=== PATIENT | male | born 1955 | race Caucasian/White ===

== ENCOUNTER 2022-04-11 16:30 | Inpatient (IN) ==
--- NOTE | 2022-04-11 16:49 | ED Triage Note ---
Date of Service April 11, 2022 History of Present Illness This patient was briefly evaluated while in triage. An abbreviated physical exam was performed. This patient is a 66-year-old Male with past medical history of Vtach who presents to the ED for evaluation of "I felt my defibrillator go off while I was sitting at my desk so I thought I should come in and get checked out." Pt. states he saw Dr. Gomez yesterday. Pt. states he has a Biotronik device. Physical Exam VITALS: Vitals are noted on the nurse's note and reviewed by myself. GENERAL: This is a 66 year old male, in no acute distress, nondiaphoretic, well- developed well-nourished. SKIN: No obvious rashes, edema, erythema HEAD: Normocephalic atraumatic. EYES: Conjunctivae without injection, sclerae without icterus. NECK: No JVD. LUNGS: No retractions or accessory muscle use. MUSCULOSKELETAL: Normal gait. NEURO: Patient was alert and oriented to person place and time. No focal neurological deficits. Initial orders for labs and / or imaging were placed and patient was placed in the waiting area until a bed is available. Please see further documentation for the full ED course.
[2022-04-11] MEDS ORDERED: SODIUM CHLORIDE 0.9% 1000ML 1,000 ML IV STA (16:51)
--- NOTE | 2022-04-11 17:14 | XRay Report ---
XR chest 1V portable HISTORY: 66 years-old Male Dysrhythmia COMPARISON: 09/10/2021 TECHNIQUE: AP view of the chest FINDINGS: Cardiac silhouette is mildly enlarged. Prior median sternotomy with cardiac valvular prosthesis. Left subclavian pacer/AICD. No pneumothorax, pleural effusion, airspace consolidation or overt pulmonary edema. Degenerative changes of the shoulders and spine. IMPRESSION: No acute process. ACT 112: Negative or not required by law. The above report was generated using voice recognition software. It may contain grammatical, syntax o r spelling errors. Electronically signed by: Rylan Rico M.D. 04/11/2022 5:13 PM
[2022-04-11 17:50] LABS: Basophils # (auto) 0.04 K/uL (0-0.2); Basophils % (auto) 0.8 %; Eosinophils # (auto) 0.08 K/uL (0-0.50); Eosinophils % (auto) 1.6 %; Hemoglobin 14.8 g/dl (14.0-18.0); Lymphocytes # (auto) 0.85 K/uL (1.2-3.4); Lymphocytes % (auto) 16.8 %; Mean Corpuscular Hemoglobin 31.8 pg (25.0-34.0); Mean Corpuscular Hgb Conc 34.4 g/dL (32.0-36.0); Mean Corpuscular Volume 92.3 fL (80.0-100.0); Mean Platelet Volume 10.8 fL (9.4-12.4); Monocytes # (auto) 0.35 K/uL (0.24-0.82); Monocytes % (auto) 6.9 %; Neutrophils # (auto) 3.73 K/uL (1.4-6.5); Neutrophils % (auto) 73.9 %; Platelet Count 201 K/uL (130-400); RDW Coefficient of Variation 12.6 % (11.5-14.5); RDW Standard Deviation 42.6 fL (36.4-46.3); Red Blood Count 4.66 M/uL (4.63-6.08); White Blood Count 5.05 K/ul (4.8-10.8)
[2022-04-11 18:58] LABS: Alanine Aminotransferase 18 U/L (7-52); Albumin Globulin Ratio 1.7 (0.9-2); Albumin Level 4.5 gm/dl (3.4-5.0); Alkaline Phosphatase 51 U/L (34-104); BUN Creatinine Ratio 16.9 (10-20); Bilirubin,Total 0.8 mg/dl (0.2-1.0); Blood Urea Nitrogen 15 mg/dl (6-23); Calcium 9.7 mg/dl (8.5-10.1); Carbon Dioxide 29 mmol/L (21-32); Chloride 103 mmol/L (98-107); Creatinine Clr Calc Pharmacy 93.5 ml/min; Est GFR (Non-African American) 89.7 ml/min; Globulin 2.7 gm/dl (2.5-4.0); Glucose 120 mg/dl (70-99(Fasting)); Total Protein 7.2 gm/dl (6.0-8.3); Troponin I High Sensitivity 41.7 pg/ml (0-20)
--- NOTE | 2022-04-11 19:49 | History & Physical Report ---
Date of Service April 11, 2022 Assessment & Plan (1) Defibrillator discharge: Plan: - Patient fell just ICD go off this afternoon at 3:30 PM, was minimally symptomatic prior to with 10-20 seconds of light palpitations. - Does have history of V. tach for which he had ablation 2017 and more recently in September, and is maintained on sotalol 120 mg twice daily. No missed doses. - So far his only lab abnormality is an elevated troponin at 41 which is unsurprising given he was recently defibrillated, however we will trend this overnight. - Potassium and magnesium are pending--could not be run from initial lab draw d/t hemolysis. - K goal 4.0, Mg goal 2.0. - Can defer on repeat echo as he recently had a cardiac MRI in February. - Cardiology consulted in the ED, recommend admitting patient and continue home medications, they will evaluate patient in the morning. (2) CAD (coronary artery disease): Plan: - History of cardiac cath, but no stents. - Remains on daily aspirin 81 mg, lisinopril 40 mg, eplerenone 25 mg daily, and was recommended by his features editor to be on a statin but has declined therapy several times. - Troponin elevated to 41 today after receiving a single shock from his device, do not suspect ACS however will trend overnight. (3) ICD (implantable cardioverter-defibrillator), single, in situ: Plan: - Received a single shock at 3:30 PM today, prior to patient was i symptomatic with light palpitations. - Device is to be interrogated tonight or tomorrow. (4) Ventricular tachycardia: Plan: - Had ablation 2017 and most recently in September 2021, with single-chamber ICD in place and on sotalol 120 mg twice daily. - Management/interrogation as above. - He had a cardiac MRI on 02/07/2022 to investigate whether scar on the mitral annulus may be contributing to V. tach, however there was no evidence of fibrosis in the visualized myocardium or territory on the lateral inferior mitral annulus. Plan - Admit to PCU. - SCDs for VTE ppx. - Full Code. History of Present Illness Chief Complaint: defibrillator discharge at 3:30 this afternoon Primary Care Provider: NO PCP Vic Fisher is a 66-year-old male with a past medical history significant for CAD, MVP s/p repair in 2003, ventricular tachycardia s/p ablation in September with single-chamber Biotronik ICD in place, and von Willebrand's disease who is presenting today after his defibrillator went off at 3:30 this afternoon. He was sitting at his computer and felt he was going into v tach, with some palpitations and and then felt his device try to repace him several times but was not successful and he knew a shock was coming. He presented to the ED for further evaluation after the shock. He has been feeling well throughout his ED stay without any chest pain, palpitations, OSB, dizziness, lightheadedness, or syncopal events. Since his recent ablation in September, as he has gone into V. tach twice in the last 2 weeks prior to today's event, on previous occasions events have been detected and he had been replaced with antitachycardia pacing. He typically feels palpitations and some lightheadedness prior to events. He was just at his features editor's office yesterday and were discussed regarding his 2 recent episodes of V. tach, including increase in sotalol dose versus observation. Patient elected for observation, and has been compliant with his sotalol 120 mg twice daily. Upon presentation throughout stay in ED, he is moderately hypertensive, mildly bradycardic with HR high 50s which appears to be his baseline. His troponin is 41, labs otherwise unremarkable however sodium, potassium, magnesium could not be run due to hemolysis. They are being repeated now. CXR is unremarkable. His EKG shows first-degree AV block which is not new, as well as nonspecific intraventricular conduction block. Allergies Allergy/AdvReac Type Severity Reaction Status Date / Time warfarin Allergy Intermediate RASH, Verified 04/10/22 13:29 DECREASE BODY TEMP. Home Medications Medication Instructions Recorded Confirmed Type amoxicillin 500 mg capsule 500 mg PO .COMPLEX 11/15/20 04/11/22 History aspirin 81 mg tablet,delayed 81 mg PO PM 11/15/20 04/11/22 History release cranberry extract 650 mg capsule 650 mg PO QAM 07/11/21 04/11/22 History (Theracran) sotalol 120 mg tablet 120 mg PO BID #180 tabs 01/26/22 04/11/22 Rx eplerenone 25 mg tablet (Inspra) 25 mg PO QAM #90 tabs 11/10/22 12/06/22 Rx lisinopril 40 mg tablet 40 mg PO HS 04/11/22 04/11/22 History multivitamin 1 tab PO DAILY 04/11/22 04/11/22 History Past Med/Surg History Medical History BPH (benign prostatic hyperplasia) Complex renal cyst Dilated aortic root Dysuria Endocarditis Hypertension LVH (left ventricular hypertrophy) Mild left ventricular systolic dysfunction Mild pulmonary hypertension Mild right ventricular systolic dysfunction Mitral valve prolapse Nephrolithiasis Symptomatic PVCs Ventricular tachycardia Von Willebrand disease Surgical History S/P cardiac catheterization S/P ICD (internal cardiac defibrillator) procedure S/P mitral valve repair Family History Mother Glaucoma Father AF (atrial fibrillation) Heart disease Sister Fibromyalgia Brother Heart disease Social History Smoking Status: Never smoker Hx Alcohol Use: No Hx Substance Use: No Preferred Language: Turkmen Communication Ability: Effective Fan Blade Aligner Required: No Beliefs That Will Affect Care: None marital status: Single Current Living Situation: Alone 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 How many Children do You have: 0 Other Information That Helps Us Care for You: No Feels Safe at Home: Yes Safety Concerns: Feels Safe At This Time Assistive Devices: None Review of Systems Review of Systems: Constitutional: No fever/chills, weakness, fatigue, myalgias, anorexia, night sweats Eyes: No diplopia, no worsening or blurred vision ENT: normal hearing, no trouble swallowing Respiratory: No cough, sputum, dyspnea at rest or on exertion Cardiovascular: palpitations this afternoon now resolved; No chest pain, tightness Abdomen: No pain, nausea, vomiting, diarrhea or constipation : Denies dysuria, hematuria, increased urgency/frequency, urinary retention Musculoskeletal: No joint pain, calf pain, swelling Neurologic: No weakness, numbness/tingling, or balance problems Psychiatric: No anxiety or depression Skin: No rash or itch Physical Exam Physical Exam: General: awake, alert, no apparent distress Head: Normocephalic, atraumatic ENT: PERRL, EOMI, no pharyngeal exudate, mucous membranes moist Chest: Clear to auscultation, on room air, no adventitious breath sounds Cardiac: Regular rate and rhythm, no murmur, no JVD, normal peripheral pulses, good capillary refill Abdominal: NABS x 4 quadrants, soft, nontender to palpation, no rebound, guarding or tenderness Extremities: Normal inspection, no peripheral edema or erythema, calfs nontender to palpation Psych: Normal mood and affect Neuro: AAO x 3, strength intact bilaterally and rated 5/5, no motor deficits, speech is clear, no peripheral sensory deficits Skin: no rash or erythema Results & Data Results & Data ([facility]) Vital Signs (Past 12 Hours) Vital Signs Temp Pulse Pulse Resp BP BP Pulse Ox 04/11/22 19:00 62 18 162/90 H 98 04/11/22 17:54 59 L 20 160/86 H 97 04/11/22 17:54 97 04/11/22 16:47 37.1 C 60 18 173/94 H 99 O2 Del Method 04/11/22 19:00 Room Air 04/11/22 17:54 Room Air 04/11/22 17:54 Room Air 04/11/22 16:47 Room Air Laboratory Results Abnormal lab results 04/11/22 04/11/22 Range/Units 17:35 17:35 Lymph # (Auto) 0.85 L (1.2-3.4) K/uL Glucose 120 H (70-99(Fasting)) mg/dl Troponin I High Sens 41.7 H (0-20) pg/ml Diagnostic Findings Chest X-Ray 04/11/22 16:51 XR chest 1V portable HISTORY: 66 years-old Male Dysrhythmia COMPARISON: 09/10/2021 TECHNIQUE: AP view of the chest FINDINGS: Cardiac silhouette is mildly enlarged. Prior median sternotomy with cardiac valvular prosthesis. Left subclavian pacer/AICD. No pneumothorax, pleural effusion, airspace consolidation or overt pulmonary edema. Degenerative changes of the shoulders and spine. IMPRESSION: No acute process. ACT 112: Negative or not required by law. The above report was generated using voice recognition software. It may contain grammatical, syntax or spelling errors. Electronically signed by: Rylan Rico M.D. 04/11/2022 5:13 PM ECG Additional Comments: Sinus bradycardia with 1st degree A-V block Non-specific intra-ventricular conduction block Abnormal ECG When compared with ECG of 10-SEP-2021 03:23, Premature ventricular complexes are no longer Present Questionable change in QRS axis. Code Status & VTE Plan Code Status Full Code. Supervising Physician Co-Signing Physician Notes Attending addendum: I have physically seen this patient, have supervised the YAA's activities, and agree with the H&P unless as otherwise noted. Assessment and Plan: Ventricular tachycardia/status post defibrillator discharge/CAD- Discharge at 330 this afternoon, preceded by a few episodes of palpitations Status post ablation 2017 Has not missed any of his routine medications of sotalol Laboratories pending, verify potassium greater than regular 4 and magnesium greater than or equal to 2 status post cardiac MRI in February, no need for echocardiogram Continue aspirin, lisinopril, eplerenone and sotalol as noted Troponin mildly elevated at 41 today likely secondary to device shock Cardiology aware and will interrogate pacer in a.m. Remaining orders and notations as noted PG Care Time/CCT Total # of Minutes Spent Total Time Spent with Patient: Total time spent is greater than 50% in coordination of care (as documented) at patient's floor/unit and/or counseling patient: Coding Level of Care Code 57561 Initial Inpt Care Lvl 3 Diagnoses Defibrillator discharge Z45.02 CAD (coronary artery disease) I25.10 Associated angina: without angina Coronary Disease-Associated Artery/Lesion type: [place] artery [place] vs. transplanted heart: king salmon heart ICD (implantable cardioverter-defibrillator), single, in situ Z95.810 Ventricular tachycardia I47.2 (1) CAD (coronary artery disease) Associated angina: without angina Coronary Disease-Associated Artery/Lesion type: [place] artery [place] vs. transplanted heart: king salmon heart Qualified Co de(s): I25.10 - Atherosclerotic heart disease of [place] coronary artery without angina pectoris
[2022-04-11 19:57] LABS: Partial Thromboplastin Time 28.5 Seconds (21.0-31.0); Prothrombin Time 10.9 Seconds (9.0-12.0)
[2022-04-11 20:31] LABS: Magnesium 1.9 mg/dl (1.7-2.4); Potassium 3.8 mmol/L (3.5-5.1)
[2022-04-11] MEDS ORDERED: ALUMINUM/MAGNESIUM SUSP 30 ML UDC PO PRN (21:25)
[2022-04-11] MEDS ORDERED: MAGNESIUM SULFATE / D5W 1 GM/100 ML BAG IV ONE (21:41)
[2022-04-11] MEDS ORDERED: POTASSIUM CHLORIDE CRTAB 20 MEQ TABCR PO STA (21:41)
[2022-04-11] MEDS: SOTALOL HCL 80 MG TAB PO SCH (21:47)
[2022-04-11] MEDS: lisinopril 40 MG TAB PO SCH (21:48)
[2022-04-11] MEDS: ASPIRIN 81 MG ECTAB PO SCH (21:48)
--- NOTE | 2022-04-12 | Emergency Department Note ---
Impression & Plan ICD (implantable cardioverter-defibrillator), single, in situ, Defibrillator discharge, Elevated troponin ED Provider Note NAME: NICOLE FREDERICK AGE: 66 SEX: M : 1955 ARRIVES VIA: Walk-In INFORMANT: Patient, ED PROVIDER(S): Arnold Sandoval MD Chief Complaint: "I was shocked by my defibrillator." HPI: Patient presents due to concern for receiving a defibrillator shock. The patient states that this occurred around 3:30 PM. The patient denies any chest pains or shortness of breath no nausea vomiting or upper respiratory symptoms. Patient states that he has been compliant with his medications and does follow with Dr. James locally as well as Dr. Blanton at [facility]. Patient does have a known history of V. tach. Patient states that he has had prior shocks in the past and this does feel similar. Patient denies any falls or trauma. Patient denies any nausea or vomiting and no diarrhea. Patient denies any exacerbating or remitting factors. The patient states he has a Biotronik AICD that was placed in 2017. Patient states that he has had it interrogated in the past without any issues. ROS: See HPI for pertinent positives and negatives. A total of 10 systems were reviewed and otherwise negative. Past medical history: See below Surgical history: See below Social history: See below Physical Exam: GENERAL: NAD, wearing a mask, non-toxic. EYE EXAM: Normal conjunctiva. PERRL, no anisocoria and EOM's grossly intact w/o pain. NECK: Supple, no nuchal rigidity, no adenopathy, non-tender. No signs of meningismus. FROM of the neck with good chin to chest and neck extension. No s tridor. LUNGS: Clear to auscultation. Normal chest wall mechanics. HEART: NSR, no MRG. ABDOMEN: Abdomen soft, non-tender, normo-active bowel sounds, no masses, no rebound or guarding. BACK: No CVA TTP. SKIN: No rashes and no bruising. UPPER EXTREMITIES: Upper extremities are grossly normal. LOWER EXTREMITIES: Grossly normal, no edema. NEURO EXAM: A&O x3, cranial nerves II-XII grossly intact, normal speech, moves all 4 extremities. Differential diagnoses: V tach, electrolyte abnormality, cardiac ischemia, aortic dissection, pulmonary embolism, pneumothorax, pneumonia, pericarditis, myocarditis, esophageal rupture, GERD, cholecystitis, pancreatitis, musculoskeletal, as well as other pathologies. Course: Patient was seen and evaluated the bedside. Full history physical exam was performed. EKG interpreted by me Sinus bradycardia with first-degree AV block, rate of 58, prolonged NC, wide QRS, normal axis. No ST elevations. Imaging Studies: See Below Cardiac monitoring: An order was placed for continuous cardiac monitoring. The monitor shows a rate of 65 with sinus rhythm. MDM: Patient presents due to concern for receiving a defibrillator shock. The patient did have blood work completed. I did request that the patient's AICD be interrogated but we do not have the equipment to do so after discussing with nursing and charge nurse. The patient blood work was completed which showed a normal white count H&H and platelet count. Kidney function is unremarkable electrolytes. Patient's initial troponin was 41. Patient has no chest pains or shortness of breath. I did speak with Dr. Restrepo with on-call cardiology who stated that the patient may continue his scheduled medications provided the QTC is not prolonged. I did convey this to the on-call hospitalist and did speak with Dr. Sorenson and the patient was admitted to the medicine service. Past Med/Surg History Medical History BPH (benign prostatic hyperplasia) Complex renal cyst Dilated aortic root Dysuria Endocarditis Hypertension LVH (left ventricular hypertrophy) Mild left ventricular systolic dysfunction Mild pulmonary hypertension Mild right ventricular systolic dysfunction Mitral valve prolapse Nephrolithiasis Symptomatic PVCs Ventricular tachycardia Von Willebrand disease Surgical History S/P cardiac catheterization S/P ICD (internal cardiac defibrillator) procedure S/P mitral valve repair Family History Mother Glaucoma Father AF (atrial fibrillation) Heart disease Sister Fibromyalgia Brother Heart disease Social History Smoking Status: Never smoker Hx Alcohol Use: No Hx Substance Use: No Preferred Language: Somali Communication Ability: Effective Supervisor Of Communications Required: No Beliefs That Will Affect Care: None marital status: Single Current Living Situation: Alone 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 Home Meds Home Medications Medication Instructions Recorded Confirmed amoxicillin 500 mg capsule 500 mg PO .COMPLEX 11/15/20 04/11/22 aspirin 81 mg tablet,delayed 81 mg PO PM 11/15/20 04/11/22 release cranberry extract 650 mg capsule 650 mg PO QAM 07/11/21 04/11/22 (Theracran) lisinopril 40 mg tablet 40 mg PO HS 04/11/22 04/11/22 multivitamin 1 tab PO DAILY 04/11/22 04/11/22 Previous Rx's Medication Instructions Recorded sotalol 120 mg tablet 120 mg PO BID #180 tabs 01/26/22 eplerenone 25 mg tablet (Inspra) 25 mg PO QAM #90 tabs 03/16/22 Results & Data (ED) Vital Signs Vital Signs - 24 hr 04/11/22 16:47 04/11/22 17:54 04/11/22 17:54 Temperature 37.1 C Temperature Source Temporal Artery Scan Pulse Rate 60 Pulse Rate [Apical] 59 L Pulse Rhythm Regular Pulse Strength Normal Respiratory Rate 18 20 Respiratory Effort / Characteristics Non-Labored Spontaneous Non-Labored Respiratory Depth Normal Normal Respiratory Pattern Regular Blood Pressure 173/94 H Blood Pressure [Right Arm] 160/86 H Blood Pressure Mean 120 Blood Pressure Mean [Right Arm] 110 Blood Pressure Position Sitting Pulse Oximetry 99 97 97 Oxygen Delivery Method Room Air Room Air Room Air Sepsis Recent Fever Within 48 Hours No Sepsis New/Unexplained Change in Mental Status No Sepsis Action Taken by Nursing No Action Required 04/11/22 19:00 Temperature Temperature Source Pulse Rate Pulse Rate [Apical] 62 Pulse Rhythm Pulse Strength Respiratory Rate 18 Respiratory Effort / Characteristics Non-Labored Respiratory Depth Normal Respiratory Pattern Blood Pressure Blood Pressure [Right Arm] 162/90 H Blood Pressure Mean Blood Pressure Mean [Right Arm] 114 Blood Pressure Position Pulse Oximetry 98 Oxygen Delivery Method Room Air Sepsis Recent Fever Within 48 Hours Sepsis New/Unexplained Change in Mental Status Sepsis Action Taken by Snf Medications Current Medication List: was personally reviewed by me Laboratory Data Attestation: I reviewed the patient's lab results. Result diagrams: 04/11/22 17:35 04/11/22 19:31 Lab Results 04/11/22 04/11/22 04/11/22 Range/Units 17:35 17:35 17:35 WBC 5.05 (4.8-10.8) K/ul RBC 4.66 (4.63-6.08) M/uL Hgb 14.8 (14.0-18.0) g/dl Hct 43.0 (40.1-51.0) % MCV 92.3 (80.0-100.0) fL MCH 31.8 (25.0-34.0) pg MCHC 34.4 (32.0-36.0) g/dL RDW Std Deviation 42.6 (36.4-46.3) fL RDW Coeff of Anuel 12.6 (11.5-14.5) % Plt Count 201 (130-400) K/uL MPV 10.8 (9.4-12.4) fL Immature Gran % (Auto) 0.0 % Neut % (Auto) 73.9 % Lymph % (Auto) 16.8 % [place] % (Auto) 6.9 % Eos % (Auto) 1.6 % Baso % (Auto) 0.8 % Neut # (Auto) 3.73 (1.4-6.5) K/uL Lymph # (Auto) 0.85 L (1.2-3.4) K/uL [place] # (Auto) 0.35 (0.24-0.82) K/uL Eos # (Auto) 0.08 (0-0.50) K/uL Baso # (Auto) 0.04 (0-0.2) K/uL Immature Gran # (Auto) 0.00 (0.00-0.02) K/uL PT Cancelled INR Cancelled APTT Cancelled PTT Ratio Cancelled Sodium TNP Potassium TNP Chloride 103 (98-107) mmol/L Carbon Dioxide 29 (21-32) mmol/L Anion Gap TNP BUN 15 (6-23) mg/dl Creatinine 0.89 (0.6-1.4) mg/dl Est Cr Clr Drug Dosing 93.5 ml/min Est GFR ( Amer) 104.0 ml/min Est GFR (Non-Af Amer) 89.7 ml/min BUN/Creatinine Ratio 16.9 (10-20) Glucose 120 H (70-99(Fasting)) mg/dl Calcium 9.7 (8.5-10.1) mg/dl Magnesium TNP Total Bilirubin 0.8 (0.2-1.0) mg/dl AST TNP ALT 18 (7-52) U/L Alkaline Phosphatase 51 (34-104) U/L Troponin I High Sens 41.7 H (0-20) pg/ml Total Protein 7.2 (6.0-8.3) gm/dl Albumin 4.5 (3.4-5.0) gm/dl Globulin 2.7 (2.5-4.0) gm/dl Albumin/Globulin Ratio 1.7 (0.9-2) TSH (0.300-4.500) uIu/ml SARS-CoV-2, RNA, NAAT (NEGATIVE) 04/11/22 04/11/22 04/11/22 Range/Units 17:35 18:27 18:43 WBC (4.8-10.8) K/ul RBC (4.63-6.08) M/uL Hgb (14.0-18.0) g/dl Hct (40.1-51.0) % MCV (80.0-100.0) fL MCH (25.0-34.0) pg MCHC (32.0-36.0) g/dL RDW Std Deviation (36.4-46.3) fL RDW Coeff of [place]uel (11.5-14.5) % Plt Count (130-400) K/uL MPV (9.4-12.4) fL Immature Gran % (Auto) % Neut % (Auto) % Lymph % (Auto) % [place] % (Auto) % Eos % (Auto) % Baso % (Auto) % Neut # (Auto) (1.4-6.5) K/uL Lymph # (Auto) (1.2-3.4) K/uL [place] # (Auto) (0.24-0.82) K/uL Eos # (Auto) (0-0.50) K/uL Baso # (Auto) (0-0.2) K/uL Immature Gran # (Auto) (0.00-0.02) K/uL PT Cancelled INR Cancelled APTT Cancelled PTT Ratio Cancelled Sodium Potassium Chloride (98-107) mmol/L Carbon Dioxide (21-32) mmol/L Anion Gap BUN (6-23) mg/dl Creatinine (0.6-1.4) mg/dl Est Cr Clr Drug Dosing ml/min Est GFR ( Amer) ml/min Est GFR (Non-Af Amer) ml/min BUN/Creatinine Ratio (10-20) Glucose (70-99(Fasting)) mg/dl Calcium (8.5-10.1) mg/dl Magnesium Total Bilirubin (0.2-1.0) mg/dl AST ALT (7-52) U/L Alkaline Phosphatase (34-104) U/L Troponin I High Sens (0-20) pg/ml Total Protein (6.0-8.3) gm/dl Albumin (3.4-5.0) gm/dl Globulin (2.5-4.0) gm/dl Albumin/Globulin Ratio (0.9-2) TSH 1.786 (0.300-4.500) uIu/ml SARS-CoV-2, RNA, NAAT NEGATIVE (NEGATIVE) 04/11/22 04/11/22 Range/Units 19:31 19:31 WBC (4.8-10.8) K/ul RBC (4.63-6.08) M/uL Hgb (14.0-18.0) g/dl Hct (40.1-51.0) % MCV (80.0-100.0) fL MCH (25.0-34.0) pg MCHC (32.0-36.0) g/dL RDW Std Deviation (36.4-46.3) fL RDW Coeff of [place]uel (11.5-14.5) % Plt Count (130-400) K/uL MPV (9.4-12.4) fL Immature Gran % (Auto) % Neut % (Auto) % Lymph % (Auto) % [place] % (Auto) % Eos % (Auto) % Baso % (Auto) % Neut # (Auto) (1.4-6.5) K/uL Lymph # (Auto) (1.2-3.4) K/uL [place] # (Auto) (0.24-0.82) K/uL Eos # (Auto) (0-0.50) K/uL Baso # (Auto) (0-0.2) K/uL Immature Gran # (Auto) (0.00-0.02) K/uL PT 10.9 INR 1.0 APTT 28.5 PTT Ratio 1.0 Sodium 140 Potassium 3.8 Chloride (98-107) mmol/L Carbon Dioxide (21-32) mmol/L Anion Gap BUN (6-23) mg/dl Creatinine (0.6-1.4) mg/dl Est Cr Clr Drug Dosing ml/min Est GFR ( Amer) ml/min Est GFR (Non-Af Amer) ml/min BUN/Creatinine Ratio (10-20) Glucose (70-99(Fasting)) mg/dl Calcium (8.5-10.1) mg/dl Magnesium 1.9 Total Bilirubin (0.2-1.0) mg/dl AST 18 ALT (7-52) U/L Alkaline Phosphatase (34-104) U/L Troponin I High Sens (0-20) pg/ml Total Protein (6.0-8.3) gm/dl Albumin (3.4-5.0) gm/dl Globulin (2.5-4.0) gm/dl Albumin/Globulin Ratio (0.9-2) TSH (0.300-4.500) uIu/ml SARS-CoV-2, RNA, NAAT (NEGATIVE) Administered Medications Aspirin (Aspirin 81 Mg Ectab) 81 mg PO PM DHAVAL Stop: 05/11/22 21:24 Last Admin: 04/11/22 21:48 Dose: 81 mg Documented By: JOSE A Lisinopril (Lisinopril 40 Mg Tab) 40 mg PO HS DHAVAL Stop: 05/11/22 21:24 Last Admin: 04/11/22 21:48 Dose: 40 mg Documented By: JOSE A Miscellaneous (Order Awaiting Action) 1 each N/A QS DHAVAL Stop: 05/12/22 00:00 Last Admin: 04/11/22 23:30 Dose: Not Given Documented By: JOSE A Sotalol HCl (Sotalol Hcl 80 Mg Tab) 120 mg PO BID DHAVAL Stop: 05/11/22 21:24 Last Admin: 04/11/22 21:47 Dose: 120 mg Documented By: JOSE A Discontinued Medications Sodium Chloride (Nss 1000ml) 1,000 mls @ 999 mls/hr IV .Q1H1M STA Stop: 04/11/22 17:51 Last Infusion: 04/11/22 19:13 Dose: 0 mls/hr Documented By: Admin: 04/11/22 17:42 Dose: 999 mls/hr Documented By: HIREN Magnesium Sulfate/Dextrose (Magnesium Sulfate / D5w) 1 gm in 100 mls @ 50 mls/hr IV ONE ONE Stop: 04/11/22 23:40 Last Admin: 04/11/22 21:53 Dose: 50 mls/hr Documented By: JOSE A Potassium Chloride (Potassium Chloride Crtab 20 Meq Tabcr) 40 meq PO NOW STA Stop: 04/11/22 21:42 Last Admin: 04/11/22 21:53 Dose: 40 meq Documented By: JOSE A Imaging Data Radiologist's Impression: Chest X-Ray 04/11/22 16:51 XR chest 1V portable HISTORY: 66 years-old Male Dysrhythmia COMPARISON: 09/10/2021 TECHNIQUE: AP view of the chest FINDINGS: Cardiac silhouette is mildly enlarged. Prior median sternotomy with cardiac valvular prosthesis. Left subclavian pacer/AICD. No pneumothorax, pleural effusion, airspace consolidation or overt pulmonary edema. Degenerative changes of the shoulders and spine. IMPRESSION: No acute process. ACT 112: Negative or not required by law. The above report was generated using voice recognition software. It may contain grammatical, syntax or spelling errors. Electronically signed by: Rylan Rico M.D. 04/11/2022 5:13 PM Discharge Plan Visit Data Chief Complaint: Tachycardia Stated Complaint: DEFIBIULATER, GOT A SHOCK, ED Provider: Arnold Sandoval Discharge Problem: ICD (implantable cardioverter-defibrillator), single, in situ, Defibrillator discharge, Elevated troponin Patient Disposition: Admitted As Inpatient Discharge Instructions Interventions: ED Discharge Assessment Last Done: 04/11/22 21:09
[2022-04-12 05:07] LABS: BUN Creatinine Ratio 14.3 (10-20); Calcium 8.7 mg/dl (8.5-10.1); Creatinine Clr Calc Pharmacy 99.1 ml/min; Est GFR (African American) 106.5 ml/min; Est GFR (Non-African American) 91.9 ml/min; Potassium 3.8 mmol/L (3.5-5.1)
[2022-04-12] MEDS: SOTALOL HCL 80 MG TAB PO SCH ×3 (08:28→21:38)
[2022-04-12] MEDS: lisinopril 40 MG TAB PO SCH ×2 (08:28→21:14)
[2022-04-12] MEDS: MULTIVITAMIN TAB PO SCH (08:28)
[2022-04-12] MEDS: ACETAMINOPHEN 325 MG TAB PO PRN ×3 (08:30→21:37)
[2022-04-12] MEDS ORDERED: CRANBERRY EXTRACT 650 MG PO SCH (09:00)
--- NOTE | 2022-04-12 11:43 | Cardiology Consultation ---
Date of Consultation April 12, 2022 Assessment & Plan (1) ICD (implantable cardioverter-defibrillator), single, in situ: (2) Ventricular tachycardia: (3) CAD (coronary artery disease): (4) Mitral regurgitation: Plan 1. Single-chamber ICD: I did not interrogate his ICD, I will do that before he goes home. 2. Ventricular tachycardia: He Had documented ventricular tachycardia several times in March and clinically he had recurrence prompting his admission. With device interrogation I will see if there is any role for reprogramming to allow more antitachycardia pacing. He was aware of the arrhythmia but did not have presyncope or syncope so we may be able to make some adjustments. 3. Coronary artery disease: Based on his prior catheterization reports he does have coronary artery disease. Although his lipid profile is not bad, it is not ideal and guidelines would indicate that he should be on a statin. 4. Mitral regurgitation: He does have a mitral regurgitation murmur however he has only minimal mitral regurgitation on his prior echocardiogram. History of Present Illness Reason for Consultation: ICD shock Attending Physician: Urban Wilcox MD History of Present Illness This is a 66-year-old gentleman who is a history of hypertension, von Willebrand's disease, mitral valve prolapse for which he had a valve repair in 2003 and was left with only minor mitral insufficiency. He had a mild nonischemic cardiomyopathy with ejection fraction of 40 to 45% range but had a cardiac arrest in 2016 following which he had a Biotronik ICD implanted in [place]. Catheterization then showed no obstructive coronary artery disease although he has been told he had up to a 30% narrowing but was also told that that was "nothing" and he has not been on a statin although he does take aspirin. I do not have that report to review. He also had recurrent ventricular tachycardia in May 2018 as well as endocarditis in June 2018, this was while he was in [place]. He had electrophysiology study and ablation in [place] in August of 2018, evidently successfully for several years. He did bring in his [place] records and he did have a cardiac catheterization there on June 26, 2018 where he was described to have up to 20% sequential LAD stenoses so he has had documented coronary artery disease. He has also had difficulty with atrial tachycardia for which he is was on sotalol, although that historically has controlled his atrial symptoms quite well. He did have a slight decrease in his exercise ability in 2020 and he did not feel as comfortable doing things as he did in the past although he was not really limited.I did obtain an echocardiogram on December 01, 2020 which showed a low normal left ventricular ejection fraction at 50 to 55%, mild left ventricular hypertrophy and no significant mitral regurgitation. In [place] on June 24, 2018 his ejection fraction was reported as 60%. I do not know that this represents loss in function however. I did have a lipid profile done on December 15, 2020 this showed his total cholesterol to be 168, LDL 104 and HDL 47. These are slightly high but not bad but he does have known coronary artery disease. His liver function tests were unremarkable. He then developed recurrent ventricular tachycardia, having episodes on July 06July 09 and August 12, 2021. The device treated these appropriately with antitachycardia pacing. We discussed options but did not arrange anything, kothari milady he had further episodes of ventricular tachycardia on September 02, 2021 and was admitted to [facility] for an increase in his sotalol. Ultimately however he had VT ablation attempted at [facility] on September 21, 2021. It appears however that the origin of the VT was likely epicardial and could not be identified with the endocardial approach. He has therefore been maintained on sotalol 120 mg twice daily. During his last clinic visit at [facility] in December 2021 a cardiac MRI was arranged to further evaluate the scar around the mitral annulus that may be contributing to his ventricular tachycardia. The study was performed on 02/07/22 and was technically limited. There was no evidence of fibrosis in the visualized myocardium, including the territory around the lateral and inferior mitral annulus. He was observed to have episodes of ventricular tachycardia on April 03, 2022 and April 04, 2022 (these were symptomatic and were terminated by antitachycardia pacing). He was seen in the office April 10, 2022 and consideration was given to increasing his sotalol but due to resting bradycardia this was not done. Allergies Allergy/AdvReac Type Severity Reaction Status Date / Time warfarin Allergy Intermediate RASH, Verified 04/10/22 13:29 DECREASE BODY TEMP. Home Medications Medication Instructions Recorded Confirmed Type amoxicillin 500 mg capsule 500 mg PO .COMPLEX 11/15/20 04/11/22 History aspirin 81 mg tablet,delayed 81 mg PO PM 11/15/20 04/11/22 History release cranberry extract 650 mg capsule 650 mg PO QAM 07/11/21 04/11/22 History (Theracran) sotalol 120 mg tablet 120 mg PO BID #180 tabs 01/26/22 04/11/22 Rx eplerenone 25 mg tablet (Inspra) 25 mg PO QAM #90 tabs 03/16/22 04/11/22 Rx lisinopril 40 mg tablet 40 mg PO HS 04/11/22 04/11/22 History multivitamin 1 tab PO DAILY 04/11/22 04/11/22 History Device Information Device Type: ICD Device Location: Left Pre-Pectoral Device/ICD [employer], Model, Serial #: [id number], Model, Serial# Implantation Date: December 20, 2016 Device MRI Compatable: Yes Magnet Response: Inhibits therapy Underlying Rhythm: Sinus Bradycardia Device Dependent: No Mode: VVI Lower Rate: 40 TERRI/Longevity: % battery life remaining Patient History Medical History BPH (benign prostatic hyperplasia) Complex renal cyst Dilated aortic root Dysuria Endocarditis Hypertension LVH (left ventricular hypertrophy) Mild left ventricular systolic dysfunction Mild pulmonary hypertension Mild right ventricular systolic dysfunction Mitral valve prolapse Nephrolithiasis Symptomatic PVCs Ventricular tachycardia Von Willebrand disease Surgical History S/P cardiac catheterization S/P ICD (internal cardiac defibrillator) procedure S/P mitral valve repair Family History Mother Glaucoma Father AF (atrial fibrillation) Heart disease Sister Fibromyalgia Brother Heart disease Social History Smoking Status: Never smoker Hx Alcohol Use: No Hx Substance Use: No Preferred Language: German Communication Ability: Effective Pro Shop Attendant Required: No Beliefs That Will Affect Care: None marital status: Single Current Living Situation: Alone 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 How many Children do You have: 0 Other Information That Helps Us Care for You: No Feels Safe at Home: Yes Safety Concerns: Feels Safe At This Time Assistive Devices: None Review of Systems Review of Systems: All systems reviewed & are unremarkable except as noted in HPI & below Results & Data ([facility]) Vital Signs (Past 12 Hours) Vital Signs Temp Pulse Pulse Resp BP BP Pulse Ox 04/12/22 11:33 36.7 C 51 L 17 123/72 96 04/12/22 08:00 58 L 04/12/22 08:04 36.5 C 54 L 17 132/79 96 04/12/22 03:39 36.6 C 57 L 18 119/71 95 04/11/22 23:51 36.4 C L 56 L 18 149/81 H 95 O2 Del Method 04/12/22 11:33 Room Air 04/12/22 08:00 04/12/22 08:04 Room Air 04/12/22 03:39 Room Air 04/11/22 23:51 Room Air Laboratory Results Cardiac Enzymes 04/11/22 04/11/22 04/11/22 Range/Units 17:35 19:31 22:24 AST TNP 18 Troponin I High Sens 41.7 H 69.5 H* D (0-20) pg/ml 04/12/22 04/12/22 Range/Units 04:25 10:18 AST Troponin I High Sens 42.4 H D 24.7 H D (0-20) pg/ml Coagulation 04/11/22 04/11/22 04/11/22 Range/Units 17:35 18:27 19:31 PT Cancelled Cancelled 10.9 APTT Cancelled Cancelled 28.5 CBC 04/11/22 Range/Units 17:35 WBC 5.05 (4.8-10.8) K/ul RBC 4.66 (4.63-6.08) M/uL Hgb 14.8 (14.0-18.0) g/dl Hct 43.0 (40.1-51.0) % Plt Count 201 (130-400) K/uL Neut # (Auto) 3.73 (1.4-6.5) K/uL Lymph # (Auto) 0.85 L (1.2-3.4) K/uL [place] # (Auto) 0.35 (0.24-0.82) K/uL Eos # (Auto) 0.08 (0-0.50) K/uL Baso # (Auto) 0.04 (0-0.2) K/uL Comprehensive Metabolic Panel 04/11/22 04/11/22 04/12/22 Range/Units 17:35 19:31 04:25 Sodium TNP 140 139 Potassium TNP 3.8 3.8 Chloride 103 107 (98-107) mmol/L Carbon Dioxide 29 28 (21-32) mmol/L BUN 15 12 (6-23) mg/dl Creatinine 0.89 0.84 (0.6-1.4) mg/dl Glucose 120 H 88 (70-99(Fasting)) mg/dl Calcium 9.7 8.7 (8.5-10.1) mg/dl AST TNP 18 ALT 18 (7-52) U/L Alkaline Phosphatase 51 (34-104) U/L Total Protein 7.2 (6.0-8.3) gm/dl Albumin 4.5 (3.4-5.0) gm/dl Intake and Output 04/11/22 04/12/22 04/12/22 22:59 06:59 14:59 Intake Total 1300 / 1600 300 / 1600 Balance 1300 / 1600 300 / 1600 Intake: IV 1000 / 1100 100 / 1100 Magnesium Sulfate / D5w 1 gm In 100 / 100 100 ml @ 50 mls/hr IV ONE ONE Rx#:[id number] Sodium Chloride 0.9% 1000ML 1, 1000 / 1000 000 ml @ 999 mls/hr IV .Q1H1M STA Rx#:[id number] Oral 300 / 500 200 / 500 Other: # Unmeasured Voids 2 Weight 82.7 kg 81.6 kg Weight Measurement Method Standing Scale Built in [facility] Diagnostic Findings An electrocardiogram done on presentation shows sinus bradycardia at 58 bpm with a nonspecific IVCD. PG Care Time/CCT Total # of Minutes Spent Total Time Spent with Patient: Total time spent is greater than 50% in coordination of care (as documented) at patient's floor/unit and/or counseling patient: Coding Level of Care Code 73608 Initial Inpt Care Lvl 3 Diagnoses ICD (implantable cardioverter-defibrillator), single, in situ Z95.810 Ventricular tachycardia I47.2 CAD (coronary artery disease) I25.10 Coronary Disease-Associated Artery/Lesion type: [place] artery [place] vs. transplanted heart: [place] heart Associated angina: without angina Mitral regurgitation I34.0 Cardiac valve disease etiology: etiology unspecified (1) CAD (coronary artery disease) Coronary Disease-Associated Artery/Lesion type: [place] artery [place] vs. transplanted heart: [place] heart Associated angina: without angina Qualified Code(s): I25.10 - Atherosclerotic heart disease of [place] coronary artery without angina pectoris (2) Mitral regurgitation Cardiac valve disease etiology: etiology unspecified Qualified Code(s): I34.0 - Nonrheumatic mitral (valve) insufficiency
[2022-04-12] MEDS ORDERED: SOTALOL HCL 80 MG TAB PO ONE (14:00)
--- NOTE | 2022-04-12 14:05 | Electrocardiogram Report ---
Test Reason : Blood Pressure : / mmHG Vent. Rate : 058 BPM Atrial Rate : 058 BPM P-R Int : 210 ms QRS Dur : 136 ms QT Int : 436 ms P-R-T Axes : 056 070 076 degrees QTc Int : 428 ms Sinus bradycardia with 1st degree A-V block Non-specific intra-ventricular conduction block Abnormal ECG When compared with ECG of 10-SEP-2021 03:23, Premature ventricular complexes are no longer Present Questionable change in QRS axis Confirmed by Mahin Byrd ([id number]) on 04/12/2022 2:05:04 PM Referred By: REFERRED SELF Confirmed By:Mahin Byrd
--- NOTE | 2022-04-12 17:45 | Hospitalist Progress Note ---
Date of Service April 12, 2022 Assessment & Plan (1) Defibrillator discharge: Plan: - Patient fell just ICD go off this afternoon at 3:30 PM, was minimally symptomatic prior to with 10-20 seconds of light palpitations. - This patient has a history of mitral valve prolapse with repair in 2003 with only minor insufficiency and a nonischemic cardiomyopathy with a EF of 40 to 45%. Patient had a cardiac arrest in 2016 at that time he had a Biotronik ICD implanted in [place]. 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 Reportedly he had electrophysiology study and ablation in [place] in August 2018 patient had difficulty with atrial tachycardia and was instituted on sotalol therapy which traditionally controlled his symptoms. Over the years his ejection fraction improved and most recent ejection fraction being normal. Patient developed recurrent ventricular tachycardia in July having episodes on the second fifth and eighth his device appropriately treated these by interrogation. Recurrent tachycardia again in August where he went to [facility] and they increased his sotalol therapy he had been ventricular tachycardia ablation attempted at [place] on September 21 but the origin of the ventricular tachycardia was epicardial and cannot be identified with the endocardial approach he therefore was maintained on sotalol therapy and it was felt that the prolapse to scar around his mitral annulus was origin of his ventricular tachycardia After evaluation today Dr. James is increase his sotalol to 160 mg twice a day evaluation of his QT and intervals in the morning (2) CAD (coronary artery disease): Plan: - History of cardiac cath, but no stents. - Remains on daily aspirin 81 mg, lisinopril 40 mg, eplerenone 25 mg daily, and was recommended by his brand leader to be on a statin but has declined therapy several times. - Troponin elevated second to AC discharge not related to ACS (3) ICD (implantable cardioverter-defibrillator), single, in situ: Plan: - Received a single shock at 3:30 PM today, prior to patient was i symptomatic with light palpitations. - Device is to be interrogated tonight or tomorrow. (4) Ventricular tachycardia: Plan: - Had ablation 2017 and most recently in September 2021, with single-chamber ICD in place and on sotalol 120 mg twice daily. - Management/interrogation as above. - He had a cardiac MRI on 02/07/2022 to investigate whether scar on the mitral annulus may be contributing to V. tach, however there was no evidence of fibrosis in the visualized myocardium or territory on the lateral inferior mitral annulus. Plan - Admit to PCU. - SCDs for VTE ppx. - Full Code. Admission and Anticipated Discharge Date Admission Date: April 11, 2022 Subjective Patient is doing well no further discharges from his device otherwise feels no chest pain palpitations or other complaints Review of Systems Review of Systems: Mild distress and fatigue no headache, no visual changes no speech or swallowing issues no chest pain, pressure or palpitations no shortness of breath, cough or wheezes no abdominal pain, nausea or vomiting, diarrhea or constipation no dysuria, hematuria or frequency no focal joint pain or swelling no back pain, CVA tenderness or radicular pain no bruising, bleeding or rashes no focal signs of weakness or numbness or altered sensation no complaints of anxiety or depression.. Physical Exam Physical Exam: The patient appeared stable Vital signs as documented. Lungs are clear to auscultation and appear unlabored Cardiac exam, Rhythm is regular.. No murmurs, rubs or gallops. Abdominal exam reveals normal bowel sounds, soft non tender, no masses Extremities are nonedematous and both pedal pulses are normal. Neurologic exam is alert and oriented, no focal loss of strength or sensation Skin is without bruises or rashes Psychologically is without concerns for anxiety or depression. Results & Data Results & Data ([facility]) Vital Signs (Past 12 Hours) Vital Signs Temp Pulse Pulse Resp BP BP Pulse Ox 04/12/22 16:50 97.7 F 47 L 19 127/68 98 04/12/22 15:19 53 L 04/12/22 11:33 98.1 F 51 L 17 123/72 96 04/12/22 08:00 58 L 04/12/22 08:04 97.7 F 54 L 17 132/79 96 O2 Del Method 04/12/22 16:50 Room Air 04/12/22 15:19 04/12/22 11:33 Room Air 04/12/22 08:00 04/12/22 08:04 Room Air PG Care Time/CCT Total # of Minutes Spent Total Time Spent with Patient: Total time spent is greater than 50% in coordination of care (as documented) at patient's floor/unit and/or counseling patient: Coding Level of Care Code 77745 Subseq Hosp Care Lvl 3 Diagnoses Defibrillator discharge Z45.02 CAD (coronary artery disease) I25.10 Coronary Disease-Associated Artery/Lesion type: [place] artery [place] vs. transplanted heart: [place] heart Associated angina: without angina ICD (implantable cardioverter-defibrillator), single, in situ Z95.810 Ventricular tachycardia I47.2 (1) CAD (coronary artery disease) Coronary Disease-Associated Artery/Lesion type: [place] artery [place] vs. transplanted heart: [place] heart Associated angina: without angina Qualified Code(s): I25.10 - Atherosclerotic heart disease of [place] coronary artery without angina pectoris
[2022-04-12] MEDS ORDERED: MELATONIN 3 MG TAB PO PRN (19:57)
[2022-04-12] MEDS: ASPIRIN 81 MG ECTAB PO SCH (21:13)
[2022-04-13] MEDS: SOTALOL HCL 80 MG TAB PO SCH ×2 (08:47→09:52)
[2022-04-13] MEDS: MULTIVITAMIN TAB PO SCH (09:11)
[2022-04-13] MEDS: lisinopril 40 MG TAB PO SCH (09:15)
--- NOTE | 2022-04-13 15:25 | Discharge Summary ---
Date of Service April 13, 2022 Admission HPI Per Admitting Provider Vic Fisher is a 66-year-old male with a past medical history significant for CAD, MVP s/p repair in 2003, ventricular tachycardia s/p ablation in September with single-chamber Biotronik ICD in place, and von Willebrand's disease who is presenting today after his defibrillator went off at 3:30 this afternoon. He was sitting at his computer and felt he was going into v tach, with some palpitations and and then felt his device try to repace him several times but was not successful and he knew a shock was coming. He presented to the ED for further evaluation after the shock. He has been feeling well throughout his ED stay without any chest pain, palpitations, OSB, dizziness, lightheadedness, or syncopal events. Since his recent ablation in September, as he has gone into V. tach twice in the last 2 weeks prior to today's event, on previous occasions events have been detected and he had been replaced with antitachycardia pacing. He typically feels palpitations and some lightheadedness prior to events. 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 tach, including increase in sotalol dose versus observation. Patient elected for observation, and has been compliant with his sotalol 120 mg twice daily. Upon presentation throughout stay in ED, he is moderately hypertensive, mildly bradycardic with HR high 50s which appears to be his baseline. His troponin is 41, labs otherwise unremarkable however sodium, potassium, magnesium could not be run due to hemolysis. They are being repeated now. CXR is unremarkable. His EKG shows first-degree AV block which is not new, as well as nonspecific intraventricular conduction block. Principal Diagnosis Ventricular tachycardia recurrent Discharge Exam Patient was seen at 2 PM. He looked well. He had no complaints. Happy that he is being discharged. 2 days ago he had last felt a jolt from the ICD discharge for ventricular tachycardia. 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 Denies any dizziness or syncope. No depressed mood. Eating well Discharge Data Allergies Allergy/AdvReac Type Severity Reaction Status Date / Time warfarin Allergy Intermediate RASH, Verified 04/10/22 13:29 DECREASE BODY TEMP. Consultations 04/11/22 19:19 ED Decision to Admit Stat 04/11/22 21:25 Consult Cardiology Routine Hospital Course (1) Defibrillator discharge: - Patient fell just ICD go 04/11 HERE at 3:30 PM, was minimally symptomatic prior to with 10-20 seconds of light palpitations. - Does have history of V. tach for which he had ablation 2017 and more recently in September, and is maintained on sotalol 120 mg twice daily. No missed doses. - elevated troponin at 41 - K goal 4.0, Mg goal 2.0. - Can defer on repeat echo as he recently had a cardiac MRI in February. - EP cardiology Dr Gomez is arranging follow-up and the patient will be discharged on 160 mg twice daily of sotalol. Heart rate was in the 40s this morning and Dr. Gomez is aware (2) CAD (coronary artery disease): - History of cardiac cath, but no stents. 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 - Troponin elevated to 41 today after receiving a single shock from his device, do not suspect ACS however will trend overnight. (3) ICD (implantable cardioverter-defibrillator), single, in situ: - Received a single shock at 3:30 PM today, prior to patient was i symptomatic with light palpitations. - Device is to be interrogated tonight or tomorrow. (4) Ventricular tachycardia: - Had ablation 2017 and most recently in September 2021, with single-chamber ICD in place and on sotalol 120 mg twice daily. - Management/interrogation as above. - He had a cardiac MRI on 02/07/2022 to investigate whether scar on the mitral annulus may be contributing to V. tach, however there was no evidence of fibrosis in the visualized myocardium or territory on the lateral inferior kapil l annulus. Plan - Admit to PCU. - SCDs for VTE ppx. - Full Code. Total Time Total Time Spent Total Time Spent (In Minutes): 40 Discharge Plan Discharge Items Patient Disposition: Home - Self-Care Reason For Visit: ICD ACTIVATION AT HOME TODAY Discharge Diagnosis: Recurrent ventricular tachycardia has AICD Activity: Resume your previous activity Bathing: No limitations Non-emergency contact: Primary Care Provider Call non-emergency contact if: you have any medication questions Follow-up/Referrals: PCP,NO [Primary Care Provider] - Diet: Heart Healthy Addtl Attending Provider Instructions: Dr. Gomez will call you for follow-up possibly in [place]. Pending Studies at Discharge: No Stand-Alone Forms: My [facility] Medications and DC Order Prescriptions: New sotalol 80 mg Tablet 160 mg PO BID Qty: 30 0RF Continued eplerenone [Inspra] 25 mg tablet 25 mg PO QAM Qty: 90 3RF amoxicillin 500 mg capsule 500 mg PO .COMPLEX Rx Instructions: 500 mg PO prior to dental appointments as directed aspirin 81 mg tablet,delayed release (DR/EC) 81 mg PO PM Theracran 650 mg Capsule 650 mg PO QAM multivitamin [Men's Multi-Vitamin] Tablet 1 tab PO DAILY lisinopril 40 mg tablet 40 mg PO HS Discontinued sotalol 120 mg tablet 120 mg PO BID Qty: 180 3RF Discharge Orders: Discharge Order (Routine); Ordered 04/13/22 Ordered By: Aaron Mccarthy Admission Data Admit Date/Time: 04/11/22 19:55 Attending Provider: Aaron Mccarthy Admit Provider: Praneeth Lau Primary Care Provider: PCP,SINDHU Other Providers: Praneeth Lau ; Jean-Paul Restrepo Coding Level of Care Code D/C DAY MANAGEMENT >30 MINS Diagnoses Defibrillator discharge Z45.02 CAD (coronary artery disease) I25.10 Associated angina: without angina Coronary Disease-Associated Artery/Lesion type: [place] artery [place] vs. transplanted heart: [place] heart ICD (implantable cardioverter-defibrillator), single, in situ Z95.810 Ventricular tachycardia I47.2
--- NOTE | 2022-04-13 17:14 | Cardiology Progress Note ---
Date of Service April 13, 2022 Assessment & Plan (1) ICD (implantable cardioverter-defibrillator), single, in situ: (2) Ventricular tachycardia: (3) CAD (coronary artery disease): (4) Mitral regurgitation: Plan 1. Single-chamber ICD: His ICD is functioning well as noted above. 2. Ventricular tachycardia: He received inappropriate shock for sustained ventricular tachycardia which was not terminated by antitachycardia pacing. I did reprogram his device to perform more antitachycardia burst as noted above. This in the prior 2 episodes appeared to start with a long short sequence including a PVC, suggesting that dual-chamber pacing could potentially decrease the frequency of the arrhythmia. I will however talk to Dr. Orozco at and see whether she feels further ablation would be in order. 3. Coronary artery disease: Based on his prior catheterization reports he does have coronary artery disease. Although his lipid profile is not bad, it is not ideal and guidelines would indicate that he should be on a statin. 4. Mitral regurgitation: He does have a mitral regurgitation murmur however he has only minimal mitral regurgitation on his prior echocardiogram. Admission and Anticipated Discharge Date Admission Date: April 11, 2022 Subjective He is feeling well today, he is tolerating the increased dose of sotalol with no difficulty. He continues to be aware of premature beats as minor palpitations. Physical Exam Physical Exam: Constitutional: Alert, cooperative and in no distress. HEENT: Unremarkable Neck: No jugular venous distention, carotid pulses are normal and equal bilaterally without bruits. Pulmonary: Clear to auscultation bilaterally. Cardiac: Regular rhythm with a grade 2/6 holosystolic murmur at the apex, no gallop or rub. Abdomen: Soft, nontender with normal bowel sounds. Extremities: No edema. Distal pulses intact. Neurologic: No focal findings. Gait is steady. Skin: The device site is well-healed without erythema, swelling or tenderness. No rash, ecchymoses or petechiae. Results & Data ([facility]) Vital Signs (Past 12 Hours) Vital Signs Temp Pulse Pulse Resp BP BP Pulse Ox 04/13/22 16:14 36.6 C 56 L 20 117/68 127/73 97 04/13/22 15:32 58 L 04/13/22 15:10 36.6 C 56 L 20 117/68 97 04/13/22 10:37 36.7 C 52 L 16 127/73 97 04/13/22 08:01 36.5 C 52 L 17 121/68 95 04/13/22 07:29 50 L O2 Del Method 04/13/22 16:14 04/13/22 15:32 04/13/22 15:10 Room Air 04/13/22 10:37 Room Air 04/13/22 08:01 Room Air 04/13/22 07:29 Laboratory Results Intake and Output 04/13/22 04/13/22 04/13/22 06:59 14:59 22:59 Intake Total 775 / 1135 240 / 240 Output Total Balance 774 / 1134 240 / 240 Intake: Oral 775 / 1135 240 / 240 Output: # Bowel Movements Other: # Unmeasured Voids 1 2 Weight 81.7 kg 81.7 kg Weight Measurement Method Built in [facility] Patient Weight 04/14/22 06:59 Weight 81.7 kg Diagnostic Findings Telemetry: Sinus rhythm with frequent premature ventricular beats, occasional couplets. No nonsustained or sustained VT. ECG today: Sinus rhythm, nonspecific T wave abnormalities but normal QT. ICD interrogation: I interrogated his ICD today and he only had 1 more episode of ventricular tachycardia which was what prompted his presentation. That was sustained ventricular tachycardia at a cycle length of 396 ms (just over 150 bpm) and was appropriately detected in the VT 1 zone, 3 bursts of antitachycardia pacing failed to terminate arrhythmia or change at and therefore an appropriate shock was delivered. I did reprogram the antitachycardia pacing in that zone to include an additional 3 ramp versus of ATP. Of note this episode of VT as well as a 2 prior did appear to start with a PVC following a pause (long short). PG Care Time/CCT Total # of Minutes Spent Total Time Spent with Patient: Total time spent is greater than 50% in coordination of care (as documented) at patient's floor/unit and/or counseling patient: Coding Level of Care Code 87540 Subseq Hosp Care Lvl 3 Diagnoses ICD (implantable cardioverter-defibrillator), single, in situ Z95.810 Ventricular tachycardia I47.2 CAD (coronary artery disease) I25.10 Coronary Disease-Associated Artery/Lesion type: [place] artery [place] vs. transplanted heart: [place] heart Associated angina: without angina Mitral regurgitation I34.0 Cardiac valve disease etiology: etiology unspecified CPT Codes Implantable Defib Single Lead Programming - 58411 ([id number]) (1) CAD (coronary artery disease) Coronary Disease-Associated Artery/Lesion type: [place] artery [place] vs. transplanted heart: [place] heart Associated angina: without angina Qualified Code(s): I25.10 - Atherosclerotic heart disease of [place] coronary artery without angina pectoris (2) Mitral regurgitation Cardiac valve disease etiology: etiology unspecified Qualified Code(s): I34.0 - Nonrheumatic mitral (valve) insufficiency
--- NOTE | 2022-04-14 05:30 | Electrocardiogram Report ---
Test Reason : Blood Pressure : / mmHG Vent. Rate : 053 BPM Atrial Rate : 053 BPM P-R Int : 228 ms QRS Dur : 128 ms QT Int : 478 ms P-R-T Axes : 067 012 091 degrees QTc Int : 448 ms Sinus bradycardia with 1st degree A-V block Non-specific intra-ventricular conduction block Nonspecific T wave abnormality Abnormal ECG When compared with ECG of 11-APR-2022 17:21, Questionable change in QRS axis Nonspecific T wave abnormality, worse in Anterolateral leads Confirmed by Jean-Paul Restrepo ([id number]) on 04/14/2022 5:29:50 AM Referred By: REFERRED SELF Confirmed By:Jean-Paul Restrepo
== END 2022-04-13 18:00 | disposition home or self-care (01) | DRG 309 ==
LOC: ED 16:30 → 4W 19:55 → SUATTDRO 19:55 → 4W 21:09

== ENCOUNTER 2023-08-25 17:52 | Inpatient (IN) ==
[2023-08-25] MEDS: SODIUM CHLORIDE 0.9% 500 ML IV STA (18:15)
--- NOTE | 2023-08-25 18:20 | Emergency Department Note ---
Impression & Plan Ventricular tachycardia, Heart palpitations ED Provider Note NAME: NICOLE FREDERICK AGE: 68 SEX: M : 1955 ARRIVES VIA: Walk-In INFORMANT: Patient, ED PROVIDER(S): Mahin De Jesus DO CHIEF COMPLAINT: Palpitations HPI: The patient is a 68-year-old male who has a history of ventricular tachycardia who presented to the emergency department for an evaluation of palpitations and tachycardia. The patient denies having any chest pain. He denies any difficulty breathing. He denies having lower extremity swelling. The patient states he has a history of ventricular tachycardia and has an implanted defibrillator. The threshold is 140 and so far he has been hanging around 130. He tried to wait and see if this would resolve on its own became the emergency department for further evaluation. The patient states has been compliant with his outpatient medication regimen. He does take sotalol metoprolol HCTZ lisinopril and amlodipine currently. The patient has a history of ablation as well. ROS: See above HPI for pertinent positives & negatives. A total of 10 systems reviewed and were otherwise negative. PAST MEDICAL HISTORY: See Below PAST SURGICAL HISTORY: See Below FAMILY HISTORY: See Below SOCIAL HISTORY: See Below HOME MEDICATIONS: See Below ALLERGIES: See Below VITALS: See Below PHYSICAL EXAMINATION: GENERAL: Patient is awake alert in no acute distress patient is resting comfortably and showing no signs of anxiety EYES: The conjunctivae are clear. The pupils are round and reactive. EARS, NOSE, MOUTH AND THROAT: The nose is without any evidence of any deformity. Mucous membranes are moist. Tongue is midline. NECK: The neck is nontender and supple. RESPIRATORY: Normal respiratory effort is noted there is no evidence of wheezing rhonchi or rales CARDIOVASCULAR: Tachycardic and regular heart sounds were noted. There is no definite murmur. GASTROINTESTINAL: The abdomen is soft. Abdomen is nontender. MUSCULOSKELETAL/EXTREMITIES: There is no evidence of gross deformity full range of motion is noted in the hips and shoulders. SKIN: There is no obvious evidence of any rash. There are no petechiae, pallor or cyanosis noted. NEUROLOGIC: Patient is awake alert and oriented x3 MEDICAL DECISION MAKING: The patient is a 68-year-old male who is a history of ventricular tachycardia. He does have a defibrillator. Prior to arrival the patient started noticing palpitations and fast heart rate. He felt that he has not ventricular tachycardia. He does have a watch that was able to tell him that he was in a wide-complex tachycardia. I discussed patient's laboratory and radiographic studies with him. The patient was started on amiodarone drip. The patient was given IV fluids as well as IV magnesium and IV potassium. He continued to be in wide-complex tachycardia although the rate had improved. [facility] The patient remained stable. I did discuss his condition with his primary computer teacher. At this time the patient will continue on the amiodarone drip. Triage Nursing notes reviewed. Prior medical records reviewed Vital Signs: reviewed and remarkable for tachycardia. Differential diagnosis: Premature contractions, electrolyte abnormality, cardiac dysrhythmia, thyroid dysfunction, pulmonary embolism, infection, gastrointestinal, as well as other pathologies. ER treatment provided: See below Diagnostics interpreted by me: ECG: EKG was obtained in the emergency department. My interpretation is wide- complex tachycardia at 139 bpm. Nonspecific T wave and ST segment abnormalities were noted. This was compared to a tracing from January 22, 2023. Wide- complex tachycardia has replaced sinus rhythm compared to the previous tracing. Cardiac Monitoring: An order was placed for continuous cardiac monitoring. The monitor shows a rate of 127 bpm with wide-complex tachycardia. Laboratory studies: As stated above and show below. Imaging studies: See below. Radiographic imaging was reviewed by myself Consultation(s): I discussed this case with Dr. Gomez who is the patient's primary computer teacher. He did recommend an amiodarone load and drip I discussed this case with Dr. Sorenson who is on-call for the [facility]. ED COURSE: Procedures: none Critical Care: I have personally spent greater than 60 minutes of critical care time in the direct management of this patient. This includes bedside care, interpretation of diagnostic studies, and testing, discussion with consultants, patient, and family members, and other required patient management activities. This 60 minutes is in excess of all separately billable procedures. Past Med/Surg History Medical History Hematuria Elevated prostate specific antigen (PSA) Dysuria Von Willebrand disease Ventricular tachycardia Symptomatic PVCs Mitral valve prolapse Mild right ventricular systolic dysfunction Mild pulmonary hypertension Mild left ventricular systolic dysfunction LVH (left ventricular hypertrophy) Hypertension Endocarditis Dilated aortic root Nephrolithiasis BPH (benign prostatic hyperplasia) Complex renal cyst Surgical History S/P mitral valve repair S/P ICD (internal cardiac defibrillator) procedure S/P cardiac catheterization Family History Mother Glaucoma Father AF (atrial fibrillation) Heart disease Sister Fibromyalgia Brother Heart disease Social History Smoking Status: Never smoker Do You Dip or Chew Tobacco: No; Hx Alcohol Use: No Hx Substance Use: No Preferred Language: Moldovan Communication Ability: Effective Cabinet Mounter Required: No Beliefs That Will Affect Care: None marital status: Single Current Living Situation: Alone 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 How many Children do You have: 0 Feels Safe at Home: Yes Assistive Devices: None Allergies Allergies Allergy/AdvReac Type Severity Reaction Status Date / Time warfarin Allergy Intermediate RASH, Verified 07/25/23 14:16 DECREASE BODY TEMP. Home Meds Home Medications Medication Instructions Recorded Confirmed amoxicillin 500 mg capsule 500 mg PO .COMPLEX 11/15/20 07/25/23 aspirin 81 mg tablet,delayed 81 mg PO PM 11/15/20 07/25/23 release cranberry extract 650 mg capsule 650 mg PO QAM 07/11/21 07/25/23 (Theracran) multivitamin 1 tab PO DAILY 04/11/22 07/25/23 acetaminophen 500 mg capsule 500 mg PO Q6H PRN 05/25/22 07/25/23 mexiletine 150 mg capsule 300 mg PO TID 01/25/23 07/25/23 Previous Rx's Medication Instructions Recorded lisinopril 40 mg tablet 40 mg PO HS #90 tabs 09/05/22 sotalol 240 mg tablet 240 mg PO BID #180 tabs 11/22/22 metoprolol succinate 100 mg 100 mg PO BID #180 tabs 02/15/23 tablet,extended release 24 hr hydrochlorothiazide 25 mg tablet 25 mg PO DAILY #90 tabs 03/15/23 amlodipine 5 mg tablet 5 mg PO DAILY #90 tabs 07/18/23 amoxicillin 500 mg-potassium 1 tab PO BID #20 tabs 08/09/23 clavulanate 125 mg tablet (Augmentin) Results & Data (ED) Vital Signs Vital Signs - 24 hr 08/25/23 18:01 08/25/23 18:16 08/25/23 18:17 Temperature 36.8 C Temperature Source Temporal Artery Scan Pulse Rate 135 H 138 H Pulse Rate [Apical] Respiratory Rate 20 Respiratory Effort / Characteristics Non-Labored Spontaneous Respiratory Depth Normal Respiratory Pattern Blood Pressure 133/87 Blood Pressure [Right Arm] Blood Pressure Mean 102 Blood Pressure Mean [Right Arm] Pulse Oximetry 98 98 Oxygen Delivery Method Room Air Room Air Oxygen Flow Rate 0 Sepsis Recent Fever Within 48 Hours No Sepsis New/Unexplained Change in Mental Status N/A Sepsis Action Taken by Nursing No Action Required 08/25/23 18:20 08/25/23 19:00 08/25/23 19:15 Temperature Temperature Source Pulse Rate 135 H Pulse Rate [Apical] 131 H 132 H Respiratory Rate 17 16 16 Respiratory Effort / Characteristics Non-Labored Spontaneous Non-Labored Spontaneous Respiratory Depth Normal Normal Respiratory Pattern Regular Regular Blood Pressure 130/95 Blood Pressure [Right Arm] 121/99 116/84 Blood Pressure Mean 106 Blood Pressure Mean [Right Arm] 106 94 Pulse Oximetry 96 94 95 Oxygen Delivery Method Room Air Room Air Room Air Oxygen Flow Rate Sepsis Recent Fever Within 48 Hours Sepsis New/Unexplained Change in Mental Status Sepsis Action Taken by Nursing 08/25/23 19:30 08/25/23 19:52 08/25/23 20:00 Temperature Temperature Source Pulse Rate Pulse Rate [Apical] 129 H 125 H 131 H Respiratory Rate 16 16 16 Respiratory Effort / Characteristics Non-Labored Spontaneous Non-Labored Spontaneous Non-Labored Spontaneous Respiratory Depth Normal Normal Normal Respiratory Pattern Regular Regular Blood Pressure Blood Pressure [Right Arm] 128/98 121/98 130/99 Blood Pressure Mean Blood Pressure Mean [Right Arm] 108 105 109 Pulse Oximetry 96 93 96 Oxygen Delivery Method Room Air Room Air Room Air Oxygen Flow Rate Sepsis Recent Fever Within 48 Hours Sepsis New/Unexplained Change in Mental Status Sepsis Action Taken by Nursing 08/25/23 20:16 08/25/23 20:30 08/25/23 20:45 Temperature Temperature Source Pulse Rate Pulse Rate [Apical] 138 H 137 H 134 H Respiratory Rate 18 16 20 Respiratory Effort / Characteristics Non-Labored Spontaneous Non-Labored Spontaneous Respiratory Depth Normal Normal Respiratory Pattern Regular Regular Blood Pressure Blood Pressure [Right Arm] 132/98 106/81 112/82 Blood Pressure Mean Blood Pressure Mean [Right Arm] 109 89 92 Pulse Oximetry 95 94 93 Oxygen Delivery Method Room Air Room Air Room Air Oxygen Flow Rate Sepsis Recent Fever Within 48 Hours Sepsis New/Unexplained Change in Mental Status Sepsis Action Taken by Nursing 08/25/23 21:00 08/25/23 21:16 08/25/23 21:32 Temperature Temperature Source Pulse Rate Pulse Rate [Apical] 123 H 126 H 122 H Respiratory Rate 18 18 18 Respiratory Effort / Characteristics Non-Labored Spontaneous Non-Labored Spontaneous Non-Labored Spontaneous Respiratory Depth Normal Normal Normal Respiratory Pattern Regular Regular Regular Blood Pressure Blood Pressure [Right Arm] 100/83 117/96 114/86 Blood Pressure Mean Blood Pressure Mean [Right Arm] 88 103 95 Pulse Oximetry 93 95 91 Oxygen Delivery Method Room Air Room Air Room Air Oxygen Flow Rate Sepsis Recent Fever Within 48 Hours Sepsis New/Unexplained Change in Mental Status Sepsis Action Taken by Nursing 08/25/23 21:45 08/25/23 22:00 08/25/23 22:15 Temperature Temperature Source Pulse Rate Pulse Rate [Apical] 126 H 123 H 128 H Respiratory Rate 18 18 18 Respiratory Effort / Characteristics Non-Labored Spontaneous Respiratory Depth Normal Respiratory Pattern Regular Blood Pressure Blood Pressure [Right Arm] 125/95 110/92 111/89 Blood Pressure Mean Blood Pressure Mean [Right Arm] 105 98 96 Pulse Oximetry 93 95 95 Oxygen Delivery Method Room Air Room Air Room Air Oxygen Flow Rate Sepsis Recent Fever Within 48 Hours Sepsis New/Unexplained Change in Mental Status Sepsis Action Taken by [facility] Medications Current Medication List: was personally reviewed by me Laboratory Data Attestation: I reviewed the patient's lab results. 08/25/23 18:12 08/25/23 18:12 Lab Results 08/25/23 Range/Units 18:12 WBC 9.00 (4.8-10.8) K/ul RBC 5.07 (4.70-6.10) M/uL Hgb 15.6 (14.0-18.0) g/dl Hct 47.2 (42.0-52.0) % MCV 93.1 (80.0-100.0) fL MCH 30.8 (25.0-34.0) pg MCHC 33.1 (32.0-36.0) g/dL RDW Std Deviation 43.1 (36.4-46.3) fL RDW Coeff of Anuel 12.6 (11.5-14.5) % Plt Count 206 (130-400) K/uL MPV 9.8 (9.4-12.4) fL Immature Gran % (Auto) 0.1 % Neut % (Auto) 74.0 % Lymph % (Auto) 16.0 % [place] % (Auto) 8.2 % Eos % (Auto) 1.1 % Baso % (Auto) 0.6 % Neut # (Auto) 6.66 H (1.40-6.50) K/uL Lymph # (Auto) 1.44 (1.20-3.40) K/uL [place] # (Auto) 0.74 H (0.11-0.59) K/uL Eos # (Auto) 0.10 (0.00-0.50) K/uL Baso # (Auto) 0.05 (0.00-0.20) K/uL Immature Gran # (Auto) 0.01 (0.01-0.20) K/uL PT 10.7 (9.0-12.0) Seconds INR 1.0 (0.9-1.1) APTT 30 (21-31) Seconds PTT Ratio 1.1 Sodium 135 L (136-145) mmol/L Potassium 3.6 (3.5-5.1) mmol/L Chloride 99 (98-107) mmol/L Carbon Dioxide 30 (21-32) mmol/L Anion Gap 6 (3-11) BUN 16 (6-23) mg/dl Creatinine 0.97 (0.6-1.4) mg/dl Est Cr Clr Drug Dosing 81.1 ml/min Est GFR ( Amer) 93.2 ml/min Est GFR (Non-Af Amer) 80.5 ml/min BUN/Creatinine Ratio 16.5 (10-20) Glucose 137 H (70-99(Fasting)) mg/dl Calcium 9.8 (8.6-10.3) mg/dl Magnesium 1.9 (1.7-2.4) mg/dl Total Bilirubin 0.8 (0.2-1.0) mg/dl AST 37 (13-39) U/L ALT 28 (7-52) U/L Alkaline Phosphatase 82 (34-104) U/L Troponin I High Sens 10.2 (0-20) pg/ml Total Protein 7.3 (6.0-8.3) gm/dl Albumin 4.5 (3.4-5.0) gm/dl Globulin 2.8 (2.5-4.0) gm/dl Albumin/Globulin Ratio 1.6 (0.9-2) TSH 3.497 (0.300-4.500) uIu/ml Administered Medications Amiodarone HCl/Dextrose (Nexterone / D5w) 360 mg in 200 mls @ 33.333 mls/hr IV ONE ONE Stop: 08/26/23 00:30 Last Admin: 08/25/23 18:45 Dose: 1 mg/min, 33.3 mls/hr Documented By: ALYSIA Co-signed By: MARGARET Discontinued Medications Amiodarone HCl (Amiodarone Iv Bolus & Drip) 1 each IV NOW STA; Protocol Stop: 08/25/23 18:22 Last Admin: 08/25/23 18:30 Dose: Not Given Documented By: ALYSIA Sodium Chloride (Nss) 500 mls @ 999 mls/hr IV .Q31M STA Stop: 08/25/23 18:39 Last Infusion: 08/25/23 18:47 Dose: Infused Documented By: Admin: 08/25/23 18:15 Dose: 999 mls/hr Documented By: PIETRO Amiodarone HCl/Dextrose (Nexterone / D5w) 150 mg in 100 mls @ 600 mls/hr IV NOW STA Stop: 08/25/23 18:30 Last Infusion: 08/25/23 18:47 Dose: Infused Documented By: ALYSIA Co-signed By: ALYSIA(2) Admin: 08/25/23 18:29 Dose: 600 mls/hr Documented By: ALYSIA Co-signed By: PIETRO Potassium Chloride (K Servando / Wtr) 10 meq in 100 mls @ 100 mls/hr IV ONE ONE Stop: 08/25/23 20:36 Last Infusion: 08/25/23 20:52 Dose: Infused Documented By: ALYSIA(2) Admin: 08/25/23 19:51 Dose: 100 mls/hr Documented By: [email or web address]) Magnesium Sulfate/Dextrose (Magnesium Sulfate / D5w) 1 gm in 100 mls @ 100 mls/hr IV NOW STA Stop: 08/25/23 20:37 Last Infusion: 08/25/23 20:52 Dose: Infused Documented By: ALYSIA(2) Admin: 08/25/23 19:51 Dose: 100 mls/hr Documented By: ALYSIA(2) Amiodarone HCl/Dextrose (Nexterone / D5w) 150 mg in 100 mls @ 600 mls/hr IV NOW STA Stop: 08/25/23 20:50 Last Infusion: 08/25/23 21:02 Dose: Infused Documented By: ALYSIA(2) Co-signed By: CAITLIN Admin: 08/25/23 20:45 Dose: 600 mls/hr Documented By: ALYSIA(2) Co-signed By: JOSE Miscellaneous (Stat Iv Infusion Titration Per Protocol) 1 each N/A NOW STA Stop: 08/25/23 18:22 Last Admin: 08/25/23 18:31 Dose: Not Given Documented By: ALYSIA Imaging Data Attestation: I personally reviewed and interpreted this imaging study as follows: My Impression: 1 view chest x-ray was obtained in the emergency department. My interpretation is no free air or definite filtrate, final report below. Radiologist's Impression: Chest X-Ray 08/25/23 18:10 SINGLE VIEW CHEST CLINICAL HISTORY: Dysrhythmia FINDINGS: 2 AP, portable, upright chest radiographs are compared to study dated 01/22/2023. A single-lead cardiac AICD is unchanged in position and partially obscures the left lower chest. The patient is status post midline sternotomy and cardiac valve surgery. The heart is enlarged. The pulmonary vasculature is noncongested. Chronic interstitial thickening is similar to previous. There is bibasilar scarring/atelectasis. The lungs and pleural spaces are otherwise clear. No pneumothorax is seen. The skeletal structures are osteopenic. The bony thorax is grossly intact. IMPRESSION: 1. Cardiomegaly and AICD without radiographic evidence of congestive failure. 2. No airspace consolidation or large pleural effusion is identified. ACT 112: Negative or not required by law. Electronically signed by: Lewis Barron M.D. 08/25/2023 6:29 PM Discharge Plan Visit Data Chief Complaint: Tachycardia Stated Complaint: TACHYCARDIA ED Provider: Mahin De Jesus Discharge Problem: Ventricular tachycardia, Heart palpitations Patient Disposition: Being Evaluated by Hospitalist Forms Stand Alone Forms: My [facility] Prescriptions Prescriptions: No Action lisinopril 40 mg tablet 40 mg PO HS Qty: 90 3RF sotalol 240 mg tablet 240 mg PO BID Qty: 180 3RF mexiletine 150 mg capsule 300 mg PO TID metoprolol succinate 100 mg tablet extended release 24 hr 100 mg PO BID Qty: 180 3RF hydrochlorothiazide 25 mg tablet 25 mg PO DAILY Qty: 90 3RF amlodipine 5 mg tablet 5 mg PO DAILY Qty: 90 3RF amoxicillin-pot clavulanate [Augmentin] 500-125 mg tablet 1 tab PO BID Qty: 20 0RF acetaminophen 500 mg capsule 500 mg PO Q6H PRN amoxicillin 500 mg capsule 500 mg PO .COMPLEX Rx Instructions: 500 mg PO prior to dental appointments as directed aspirin 81 mg tablet,delayed release (DR/EC) 81 mg PO PM Theracran 650 mg Capsule 650 mg PO QAM multivitamin Tablet 1 tab PO DAILY Referrals Referrals: PCP,NO [Primary Care Provider] -
[2023-08-25] MEDS ORDERED: 0.2 MICRON FILTER SET 1 EACH IV STA (18:21)
[2023-08-25 18:26] LABS: Basophils # (auto) 0.05 K/uL (0.00-0.20); Basophils % (auto) 0.6 %; Eosinophils % (auto) 1.1 %; Hematocrit (blood only) 47.2 % (42.0-52.0); Hemoglobin 15.6 g/dl (14.0-18.0); Immature Granulocytes # (auto) 0.01 K/uL (0.01-0.20); Immature Granulocytes % (auto) 0.1 %; Lymphocytes # (auto) 1.44 K/uL (1.20-3.40); Mean Corpuscular Hemoglobin 30.8 pg (25.0-34.0); Mean Corpuscular Hgb Conc 33.1 g/dL (32.0-36.0); Mean Corpuscular Volume 93.1 fL (80.0-100.0); Mean Platelet Volume 9.8 fL (9.4-12.4); Monocytes # (auto) 0.74 K/uL (0.11-0.59); Monocytes % (auto) 8.2 %; Neutrophils # (auto) 6.66 K/uL (1.40-6.50); Platelet Count 206 K/uL (130-400); RDW Coefficient of Variation 12.6 % (11.5-14.5); RDW Standard Deviation 43.1 fL (36.4-46.3); Red Blood Count 5.07 M/uL (4.70-6.10)
[2023-08-25] MEDS: AMIODARONE / D5W 150 MG/100 ML BAG IV STA ×2 (18:29→20:45)
[2023-08-25] MEDS: AMIODARONE IV BOLUS & DRIP IV STA (18:30)
[2023-08-25] MEDS: STAT IV Infusion **Titration per Protocol STA (18:31)
--- NOTE | 2023-08-25 18:31 | XRay Report ---
SINGLE VIEW CHEST CLINICAL HISTORY: Dysrhythmia FINDINGS: 2 AP, portable, upright chest radiographs are compared to study dated 01/22/2023. A single-l ead cardiac AICD is unchanged in position and partially obscures the left lower chest. The patient is status post midline sternotomy and cardiac valve surgery. The heart is enlarged. The pulmonary vascu lature is noncongested. Chronic interstitial thickening is similar to previous. There is bibasilar sc arring/atelectasis. The lungs and pleural spaces are otherwise clear. No pneumothorax is seen. The sk eletal structures are osteopenic. The bony thorax is grossly intact. IMPRESSION: 1. Cardiomegaly and AICD without radiographic evidence of congestive failure. 2. No airspace consolidation or large pleural effusion is identified. ACT 112: Negative or not required by law. Electronically signed by: Lewis Barron M.D. 08/25/2023 6:29 PM
[2023-08-25 18:41] LABS: Albumin Globulin Ratio 1.6 (0.9-2); Albumin Level 4.5 gm/dl (3.4-5.0); BUN Creatinine Ratio 16.5 (10-20); Bilirubin,Total 0.8 mg/dl (0.2-1.0); Calcium 9.8 mg/dl (8.6-10.3); Creatinine Clr Calc Pharmacy 81.1 ml/min; Est GFR (African American) 93.2 ml/min; Est GFR (Non-African American) 80.5 ml/min; Globulin 2.8 gm/dl (2.5-4.0); Magnesium 1.9 mg/dl (1.7-2.4); Potassium 3.6 mmol/L (3.5-5.1); Total Protein 7.3 gm/dl (6.0-8.3)
[2023-08-25] MEDS: AMIODARONE / D5W 360 MG/200 ML BAG IV ONE (18:45)
[2023-08-25 18:47] LABS: Troponin I High Sensitivity 10.2 pg/ml (0-20)
[2023-08-25 18:51] LABS: Partial Thromboplastin Ratio 1.1; Partial Thromboplastin Time 30 Seconds (21-31); Prothrombin Time 10.7 Seconds (9.0-12.0)
[2023-08-25 18:57] LABS: Thyroid Stimulating Hormone 3.497 uIu/ml (0.300-4.500)
[2023-08-25] MEDS: POTASSIUM CHLORIDE / WTR 10 MEQ/100 ML PLCT IV ONE (19:51)
[2023-08-25] MEDS: MAGNESIUM SULFATE / D5W 1 GM/100 ML BAG IV STA (19:51)
[2023-08-25] MEDS ORDERED: 0.2 MICRON FILTER SET 1 EACH IV ONE (20:41)
[2023-08-25] MEDS: ASPIRIN CHEW 324 MG PO STA (22:31)
[2023-08-25] MEDS: MEXILETINE HCL 150 MG CAPSULE PO ONE (22:31)
[2023-08-25] MEDS ORDERED: Heparin IV Adult Wt-Based Standard *NO* INITIAL Bolus Protocol IV STA (22:49)
--- NOTE | 2023-08-25 22:54 | History & Physical Report ---
Date of Service August 25, 2023 Assessment & Plan (1) Admitted to intensive care unit: (2) Ventricular tachycardia: (3) Heart palpitations: (4) Hypertension: (5) Aortic insufficiency: (6) CAD (coronary artery disease): (7) ICD (implantable cardioverter-defibrillator), single, in situ: (8) BPH (benign prostatic hyperplasia): Plan Sustained ventricular tachycardia/ICD/CAD/hypertension/aortic insufficiency/mitral valve prolapse- Patient be admitted to the ICU Order complete echocardiogram Continue amiodarone bolus and drip per protocol Patient did have improvement in heart rate from the mid 130s down to 127 after a second amiodarone 150 mg IV bolus while the initial drip was running Due to blood pressure in the low normal range, he received his single evening dose of mexiletine 150 mg IV and aspirin His evening dose of metoprolol succinate and sotalol were held, and will not be resumed until ordered by cardiology Continue mexiletine 150 mg p.o. 3 times daily Patient was started on heparin drip standard protocol without bolus while still in the ED Hold lisinopril/HCTZ and amlodipine NSS + KCl 20 mill equivalents at 80 mL/h Overall patient remained relatively asymptomatic, except for palpitations Urinary tract infection- Patient had completed Augmentin twice daily dosing about 1 week ago History of Present Illness Chief Complaint: The patient presents to the emergency department due to palpitations and tachycardia, with known history of ventricular tachycardia and ICD set to discharge at a heart rate of 140, with heart rate primarily maintaining 130-135 bpm Primary Care Provider: NO PCP The patient is a 68-year-old male with a past medical history including ventricular tachycardia, presence of ICD, aortic insufficiency, hypertension, history of defibrillator discharging, CAD, UTI status post treatment with Augmentin 1 week ago, BPH with LUTS and mitral regurgitation. About 1 hour prior to arrival, the patient noted an increased heart rate around 130-135. When he presented to the emergency department, he was found to be in sustained ventricular tachycardia over 130-140 range. He had not yet taken his evening medications, and was placed on Cardizem bolus/drip protocol by the ED. When given a second amiodarone 150 mg IV bolus, this brought his heart rate to a maintained 127-128 rate. The plan, as patient has discussed with cardiology, was that the patient was able to be brought come back to normal sinus rhythm he can go home. However, patient need to be admitted, and was admitted to the ICU on amiodarone continuous infusion per protocol. Prior to leaving the emergency department, patient did receive his mexiletine 150 mg dose and aspirin dose. His sotalol and metoprolol succinate evening doses were held. He also received NSS 500 mL, a single K rider, and magnesium sulfate 1 g IV. Allergies Allergy/AdvReac Type Severity Reaction Status Date / Time warfarin Allergy Intermediate RASH, Verified 08/25/23 23:03 DECREASE BODY TEMP. Home Medications Medication Instructions Recorded Confirmed Type amoxicillin 500 mg capsule 2,000 mg PO DIRECTED 11/15/20 08/25/23 History aspirin 81 mg tablet,delayed 81 mg PO PM 11/15/20 08/25/23 History release cranberry extract 650 mg capsule 650 mg PO QAM 07/11/21 08/25/23 History (Theracran) multivitamin 1 tab PO DAILY 04/11/22 08/25/23 History acetaminophen 500 mg capsule 1,000 mg PO Q6H PRN Pain 05/25/22 08/25/23 History lisinopril 40 mg tablet 40 mg PO HS #90 tabs 09/05/22 08/25/23 Rx mexiletine 150 mg capsule 150 mg PO TID 01/25/23 08/25/23 History metoprolol succinate 100 mg 100 mg PO BID #180 tabs 02/15/23 08/25/23 Rx tablet,extended release 24 hr hydrochlorothiazide 25 mg tablet 25 mg PO DAILY #90 tabs 03/15/23 08/25/23 Rx amlodipine 5 mg tablet 5 mg PO DAILY #90 tabs 07/18/23 08/25/23 Rx sotalol 120 mg tablet 120 mg PO Q12 08/25/23 08/25/23 History Past Med/Surg History Medical History Hematuria Elevated prostate specific antigen (PSA) Dysuria Von Willebrand disease Ventricular tachycardia Symptomatic PVCs Mitral valve prolapse Mild right ventricular systolic dysfunction Mild pulmonary hypertension Mild left ventricular systolic dysfunction LVH (left ventricular hypertrophy) Hypertension Endocarditis Dilated aortic root Nephrolithiasis BPH (benign prostatic hyperplasia) Complex renal cyst Surgical History S/P mitral valve repair S/P ICD (internal cardiac defibrillator) procedure S/P cardiac catheterization Family History Mother Glaucoma Father AF (atrial fibrillation) Heart disease Sister Fibromyalgia Brother Heart disease Social History Smoking Status: Never smoker Do You Dip or Chew Tobacco: No; Hx Alcohol Use: No Hx Substance Use: No Preferred Language: Japanese Communication Ability: Effective Cigarette Machine Filler Required: No Beliefs That Will Affect Care: None marital status: Single Current Living Situation: Alone 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 How many Children do You have: 0 Feels Safe at Home: Yes Assistive Devices: Glasses Review of Systems Review of Systems: the patient denies chest pain, shortness of breath, dyspnea on exertion, cough, lower extremity swelling, sore throat, fevers, chills, sweats, weight change, fatigue, nausea, vomiting, diarrhea , constipation, abdominal pain, pelvic pain, blood in urine or stool, dysuria, urinary frequency or urgency, lightheadedness, dizziness, headache, memory loss, loss of consciousness, rash, abnormal bruising or bleeding, imbalance, focal or generalized weakness, numbness or tingling in arms or legs, generalized arthralgias or myalgias, back or neck pain, or night sweats. The review of systems is otherwise negative other than for that already noted above, and at least 10 systems have been reviewed. Physical Exam Physical Exam: The patient is awake, alert and oriented 3, well developed and well nourished, normocephalic and atraumatic, lying in bed and in no acute distress. HEENT--PERRL, EOMI, mucous membranes and oropharynx dry. Neck--supple. No JVD. No bruits. Thyroid normal, trachea midline, no adenopathy. Heart-tachycardic and regular. No murmurs, rubs or gallops. Lungs--clear bilaterally, no respiratory distress, no accessory muscle use. Abdomen--normal bowel sounds and soft. Nontender. Nondistended, no hernias or masses, no organomegaly. Extremities--No edema. Dermatologic--normal skin turgor, normal color, no abnormal lymph nodes, no rash. Neurologic--cranial nerves II through XII grossly intact. Rheumatologic--normal range of motion. Psychiatric--normal affect. Results & Data Results & Data Vital Signs (Past 12 Hours) Vital Signs Temp Pulse Pulse Resp BP BP Pulse Ox 08/25/23 22:46 126 H 16 126/98 93 08/25/23 22:30 133 H 18 133/88 94 08/25/23 22:15 128 H 18 111/89 95 08/25/23 22:00 123 H 18 110/92 95 08/25/23 21:45 126 H 18 125/95 93 08/25/23 21:32 122 H 18 114/86 91 08/25/23 21:16 126 H 18 117/96 95 08/25/23 21:00 123 H 18 100/83 93 08/25/23 20:45 134 H 20 112/82 93 08/25/23 20:30 137 H 16 106/81 94 08/25/23 20:16 138 H 18 132/98 95 08/25/23 20:00 131 H 16 130/99 96 08/25/23 19:52 125 H 16 121/98 93 08/25/23 19:30 129 H 16 128/98 96 08/25/23 19:15 132 H 16 116/84 95 08/25/23 19:00 131 H 16 121/99 94 08/25/23 18:20 135 H 17 130/95 96 08/25/23 18:17 138 H 08/25/23 18:16 98 08/25/23 18:01 36.8 C 135 H 20 133/87 98 O2 Del Method O2 Flow Rate 08/25/23 22:46 Room Air 08/25/23 22:30 Room Air 08/25/23 22:15 Room Air 08/25/23 22:00 Room Air 08/25/23 21:45 Room Air 08/25/23 21:32 Room Air 08/25/23 21:16 Room Air 08/25/23 21:00 Room Air 08/25/23 20:45 Room Air 08/25/23 20:30 Room Air 08/25/23 20:16 Room Air 08/25/23 20:00 Room Air 08/25/23 19:52 Room Air 08/25/23 19:30 Room Air 08/25/23 19:15 Room Air 08/25/23 19:00 Room Air 08/25/23 18:20 Room Air 08/25/23 18:17 08/25/23 18:16 Room Air 0 08/25/23 18:01 Room Air Laboratory Results Laboratory Results WBC 9.00 K/ul (4.8-10.8) 08/25/23 18:12 RBC 5.07 M/uL (4.70-6.10) 08/25/23 18:12 Hgb 15.6 g/dl (14.0-18.0) 08/25/23 18:12 Hct 47.2 % (42.0-52.0) 08/25/23 18:12 MCV 93.1 fL (80.0-100.0) 08/25/23 18:12 MCH 30.8 pg (25.0-34.0) 08/25/23 18:12 MCHC 33.1 g/dL (32.0-36.0) 08/25/23 18:12 RDW Std Deviation 43.1 fL (36.4-46.3) 08/25/23 18:12 RDW Coeff of Anuel 12.6 % (11.5-14.5) 08/25/23 18:12 Plt Count 206 K/uL (130-400) 08/25/23 18:12 MPV 9.8 fL (9.4-12.4) 08/25/23 18:12 Immature Gran % (Auto) 0.1 % 08/25/23 18:12 Neut % (Auto) 74.0 % 08/25/23 18:12 Lymph % (Auto) 16.0 % 08/25/23 18:12 [place] % (Auto) 8.2 % 08/25/23 18:12 Eos % (Auto) 1.1 % 08/25/23 18:12 Baso % (Auto) 0.6 % 08/25/23 18:12 Neut # (Auto) 6.66 K/uL (1.40-6.50) H 08/25/23 18:12 Lymph # (Auto) 1.44 K/uL (1.20-3.40) 08/25/23 18:12 [place] # (Auto) 0.74 K/uL (0.11-0.59) H 08/25/23 18:12 Eos # (Auto) 0.10 K/uL (0.00-0.50) 08/25/23 18:12 Baso # (Auto) 0.05 K/uL (0.00-0.20) 08/25/23 18:12 Immature Gran # (Auto) 0.01 K/uL (0.01-0.20) 08/25/23 18:12 PT 10.7 Seconds (9.0-12.0) 08/25/23 18:12 INR 1.0 (0.9-1.1) 08/25/23 18:12 APTT 30 Seconds (21-31) 08/25/23 18:12 PTT Ratio 1.1 08/25/23 18:12 Sodium 135 mmol/L (136-145) L 08/25/23 18:12 Potassium 3.6 mmol/L (3.5-5.1) 08/25/23 18:12 Chloride 99 mmol/L (98-107) 08/25/23 18:12 Carbon Dioxide 30 mmol/L (21-32) 08/25/23 18:12 Anion Gap 6 (3-11) 08/25/23 18:12 BUN 16 mg/dl (6-23) 08/25/23 18:12 Creatinine 0.97 mg/dl (0.6-1.4) 08/25/23 18:12 Est Cr Clr Drug Dosing 81.1 ml/min 08/25/23 18:12 Est GFR ( Amer) 93.2 ml/min 08/25/23 18:12 Est GFR (Non-Af Amer) 80.5 ml/min 08/25/23 18:12 BUN/Creatinine Ratio 16.5 (10-20) 08/25/23 18:12 Glucose 137 mg/dl (70-99(Fasting)) H 08/25/23 18:12 Calcium 9.8 mg/dl (8.6-10.3) 08/25/23 18:12 Magnesium 1.9 mg/dl (1.7-2.4) 08/25/23 18:12 Total Bilirubin 0.8 mg/dl (0.2-1.0) 08/25/23 18:12 AST 37 U/L (13-39) 08/25/23 18:12 ALT 28 U/L (7-52) 08/25/23 18:12 Alkaline Phosphatase 82 U/L (34-104) 08/25/23 18:12 Troponin I High Sens 10.2 pg/ml (0-20) 08/25/23 18:12 Total Protein 7.3 gm/dl (6.0-8.3) 08/25/23 18:12 Albumin 4.5 gm/dl (3.4-5.0) 08/25/23 18:12 Globulin 2.8 gm/dl (2.5-4.0) 08/25/23 18:12 Albumin/Globulin Ratio 1.6 (0.9-2) 08/25/23 18:12 TSH 3.497 uIu/ml (0.300-4.500) 08/25/23 18:12 Nasal Screen MRSA (PCR) Negative (Negative) 08/26/23 00:00 Impressions Chest X-Ray 08/25/23 18:10 SINGLE VIEW CHEST CLINICAL HISTORY: Dysrhythmia FINDINGS: 2 AP, portable, upright chest radiographs are compared to study dated 01/22/2023. A single-lead cardiac AICD is unchanged in position and partially obscures the left lower chest. The patient is status post midline sternotomy and cardiac valve surgery. The heart is enlarged. The pulmonary vasculature is noncongested. Chronic interstitial thickening is similar to previous. There is bibasilar scarring/atelectasis. The lungs and pleural spaces are otherwise clear. No pneumothorax is seen. The skeletal structures are osteopenic. The bony thorax is grossly intact. IMPRESSION: 1. Cardiomegaly and AICD without radiographic evidence of congestive failure. 2. No airspace consolidation or large pleural effusion is identified. ACT 112: Negative or not required by law. Electronically signed by: Lewis Barron M.D. 08/25/2023 6:29 PM Code Status & VTE Plan Code Status Full code VTE Prophylaxis Plan VTE Prophylaxis will be ordered: Yes PG Care Time/CCT Total # of Minutes Spent Total Time Spent with Patient: Total time spent is greater than 50% in coordination of care (as documented) at patient's floor/unit and/or counseling patient: 55 minutes Coding Level of Care Code 15434 INT INP/OBS CARE 3/75MIN Diagnoses Admitted to intensive care unit Z78.9 Ventricular tachycardia I47.20 Heart palpitations R00.2 Primary hypertension I10 Hypertension type: primary hypertension Aortic valve insufficiency, etiology of cardiac valve disease unspecified I35.1 Cardiac valve disease etiology: etiology unspecified Coronary artery disease involving [place] coronary artery of [place] heart without angina pectoris I25.10 Coronary Disease-Associated Artery/Lesion type: [place] artery [place] vs. transplanted heart: [place] heart Associated angina: without angina ICD (implantable cardioverter-defibrillator), single, in situ Z95.810 BPH (benign prostatic hyperplasia) N40.0 (4) Hypertension Hypertension type: primary hypertension Qualified Code(s): I10 - Essential (primary) hypertension (5) Aortic insufficiency Cardiac valve disease etiology: etiology unspecified Qualified Code(s): I35.1 - Nonrheumatic aortic (valve) insufficiency (6) CAD (coronary artery disease) Coronary Disease-Associated Artery/Lesion type: [place] artery [place] vs. transplanted heart: [place] heart Associated angina: without angina Qualified Code(s): I25.10 - Atherosclerotic heart disease of [place] coronary artery without angina pectoris
[2023-08-25] MEDS: POTASSIUM CHLORIDE CRTAB 20 MEQ TABCR PO STA (23:05)
[2023-08-25] MEDS: NSS + 20MEQ KCL 20 MEQ/1,000 ML BAG IV SCH (23:34)
[2023-08-25] MEDS: MAGNESIUM SULFATE / D5W 1 GM/100 ML BAG IV ONE (23:38)
[2023-08-25] MEDS: HEPARIN SODIUM/DEXTROSE 25,000 UNITS/500 ML BAG IV SCH (23:43)
[2023-08-26] MEDS: MEXILETINE HCL 150 MG CAPSULE PO ONE (00:27)
[2023-08-26] MEDS: AMIODARONE / D5W 360 MG/200 ML BAG IV SCH (00:32)
--- NOTE | 2023-08-26 04:05 | Billing Data ---
Date of Service August 26, 2023 Coding Level of Care Code 37673 CRITICAL CARE
--- NOTE | 2023-08-26 05:08 | Critical Care Consultation ---
Date of Consultation August 26, 2023 Assessment & Plan (1) Wide-complex tachycardia: Impression: 68-year-old male with past medical history of ventricular tachycardia, who was undergone multiple ablations and has ICD, presents to the ICU with sustained wide-complex tachycardia. Remains stable off vasopressors and continue with amiodarone admitted to ICU for close monitoring. Neuro - [facility] ICU: Negative Cardiac - Wide-complex tachycardiaEKG reviewed by cardiology, and believed to be ventricular tachycardia. Patient currently stable hemodynamically, and admitted to ICU for monitoring. -TTE pending, does have known aortic insufficiency but asymptomatic -Received amiodarone bolus and drip in the emergency department. Continue -Continue mexiletine -Defer to cardiology whether to continue metoprolol and [place] at this time -Will start on heparin drip -Antihypertensives on hold -Maximize electrolytes -Cardiology consult pending -Continuous monitoring on telemetry. Keep defibrillation pads on patient for now CADcontinue ASA Respiratory - No history of pulmonary disease, currently maintaining oxygen saturation on room air. Continuous pulse ox monitoring GI - N.p.o. RENAL/LYTES - Creatinine within normal limits. No significant electrolyte abnormalities. Will monitor routine BMPs and replete electrolytes as indicated Continue IV fluid resuscitation while n.p.o. - Strict I's and O's ENDO - No history of diabetes or thyroid disease. ICU hyperglycemic protocol HEME - H&H stable, monitor routine CBC ID - Patient did have recent E. coli UTI with 10-day prescription for Augmentin completed Sunday. Complains of burning with urination. Will repeat urinalysis/urine culture LINES/IV ACCESS - Peripheral IVs DVT PROPHYLAXIS - SCDs, heparin drip Thank you for allowing us to participate in the care of this patient. Please refer to my attending physician's documentation for any further recommendations. (2) Hypertension: (3) Aortic insufficiency: (4) CAD (coronary artery disease): History of Present Illness Attending Physician: Praneeth Lau MD History of Present Illness Patient is a 68-year-old male with past medical history of ventricular tachycardia (has undergone multiple ablations and placement of ICD), aortic sufficiency, HTN CAD, recurrent UTIs who presented to the emergency department earlier this evening with complaint of palpitations and fast heart rate. On arrival to the emergency department patient, patient appeared to be in a sustained ventricular tachycardia with rate in the 130s. He was hemodynamically stable, and nearly asymptomatic other than palpitations. Case was discussed with cardiology, and recommended medical management for now with amiodarone drip. Patient now being admitted to ICU for further management and monitoring as he remains in wide-complex tachycardia. On arrival to the ICU the patient is alert and oriented. He denies headache, dizziness, syncopal events, changes in gait, changes in vision, recent illness or fevers, shortness of breath, cough, congestion, chest pain, abdominal pain, nausea vomiting or diarrhea, swelling in hands or feet. Patient does report continued palpitations which have been ongoing since earlier this evening. He does report recent UTI, and states that he finished 10 days of amoxicillin on Sunday. He does report some burning with urination. Allergies Allergy/AdvReac Type Severity Reaction Status Date / Time warfarin Allergy Intermediate RASH, Verified 08/25/23 23:03 DECREASE BODY TEMP. Home Medications Medication Instructions Recorded Confirmed Type amoxicillin 500 mg capsule 2,000 mg PO DIRECTED 11/15/20 08/25/23 History aspirin 81 mg tablet,delayed 81 mg PO PM 11/15/20 08/25/23 History release cranberry extract 650 mg capsule 650 mg PO QAM 07/11/21 08/25/23 History (Theracran) multivitamin 1 tab PO DAILY 04/11/22 08/25/23 History acetaminophen 500 mg capsule 1,000 mg PO Q6H PRN Pain 05/25/22 08/25/23 History lisinopril 40 mg tablet 40 mg PO HS #90 tabs 09/05/22 08/25/23 Rx mexiletine 150 mg capsule 150 mg PO TID 01/25/23 08/25/23 History metoprolol succinate 100 mg 100 mg PO BID #180 tabs 02/15/23 08/25/23 Rx tablet,extended release 24 hr hydrochlorothiazide 25 mg tablet 25 mg PO DAILY #90 tabs 03/15/23 08/25/23 Rx amlodipine 5 mg tablet 5 mg PO DAILY #90 tabs 07/18/23 08/25/23 Rx sotalol 120 mg tablet 120 mg PO Q12 08/25/23 08/25/23 History Patient History Medical History Hematuria Elevated prostate specific antigen (PSA) Dysuria Von Willebrand disease Ventricular tachycardia Symptomatic PVCs Mitral valve prolapse Mild right ventricular systolic dysfunction Mild pulmonary hypertension Mild left ventricular systolic dysfunction LVH (left ventricular hypertrophy) Hypertension Endocarditis Dilated aortic root Nephrolithiasis BPH (benign prostatic hyperplasia) Complex renal cyst Surgical History S/P mitral valve repair S/P ICD (internal cardiac defibrillator) procedure S/P cardiac catheterization Family History Mother Glaucoma Father AF (atrial fibrillation) Heart disease Sister Fibromyalgia Brother Heart disease Social History Smoking Status: Never smoker Do You Dip or Chew Tobacco: No; Hx Alcohol Use: No Hx Substance Use: No Preferred Language: [place]an Communication Ability: Effective Construction Job Titles Required: No Beliefs That Will Affect Care: None marital status: Single Current Living Situation: Alone 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 How many Children do You have: 0 Other Information That Helps Us Care for You: No Feels Safe at Home: Yes Safety Concerns: Feels Safe At This Time Assistive Devices: Glasses Review of Systems Review of Systems: All systems reviewed & are unremarkable except as noted in HPI & below Physical Exam Constitutional: cooperative and comfortable Eyes: PERRL, conjunctivae normal, anicteric sclerae ENMT: external ear and nose normal, oropharynx normal Neck: trachea midline, no thyromegaly Respiratory: normal respiratory effort, lungs clear to auscultation Cardiovascular: Rate/Rhythm: regular rate and + tachycardic Heart Sounds: + murmur Vessels: no JVD Extremities: no edema Gastrointestinal (Abdomen): normal bowel sounds, soft, nontender, no hepatosplenomegaly Musculoskeletal: no cyanosis or clubbing, extremities motor strength 5/5 Skin: no rashes, warm and dry Neurologic: PERRL, EOMI, accommodation nl, no face palsy, no dysarthria Psychiatric: A+Ox3, euthymic affect Results & Data Results & Data Vital Signs (Past 12 Hours) Vital Signs Temp Pulse Pulse Resp BP BP BP 08/26/23 00:02 08/26/23 00:00 121 H 22 120/89 08/25/23 23:35 36.6 C 136 H 20 114/88 08/25/23 23:27 36.6 C 134 H 19 114/88 08/25/23 22:46 126 H 16 126/98 08/25/23 22:30 133 H 18 133/88 08/25/23 22:17 129 H 08/25/23 22:15 128 H 18 111/89 08/25/23 22:00 123 H 18 110/92 08/25/23 21:45 126 H 18 125/95 08/25/23 21:32 122 H 18 114/86 08/25/23 21:16 126 H 18 117/96 08/25/23 21:00 123 H 18 100/83 08/25/23 20:45 134 H 20 112/82 08/25/23 20:30 137 H 16 106/81 08/25/23 20:16 138 H 18 132/98 08/25/23 20:00 131 H 16 130/99 08/25/23 19:52 125 H 16 121/98 08/25/23 19:30 129 H 16 128/98 08/25/23 19:15 132 H 16 116/84 08/25/23 19:00 131 H 16 121/99 08/25/23 18:20 135 H 17 130/95 08/25/23 18:17 138 H 08/25/23 18:16 08/25/23 18:01 36.8 C 135 H 20 133/87 Pulse Ox Pulse Ox O2 Del Method O2 Del Method O2 Flow Rate 08/26/23 00:02 94 Room Air 08/26/23 00:00 94 Room Air 08/25/23 23:35 95 Room Air 08/25/23 23:27 94 Room Air 08/25/23 22:46 93 Room Air 08/25/23 22:30 94 Room Air 08/25/23 22:17 08/25/23 22:15 95 Room Air 08/25/23 22:00 95 Room Air 08/25/23 21:45 93 Room Air 08/25/23 21:32 91 Room Air 08/25/23 21:16 95 Room Air 08/25/23 21:00 93 Room Air 08/25/23 20:45 93 Room Air 08/25/23 20:30 94 Room Air 08/25/23 20:16 95 Room Air 08/25/23 20:00 96 Room Air 08/25/23 19:52 93 Room Air 08/25/23 19:30 96 Room Air 08/25/23 19:15 95 Room Air 08/25/23 19:00 94 Room Air 08/25/23 18:20 96 Room Air 08/25/23 18:17 08/25/23 18:16 98 Room Air 0 08/25/23 18:01 98 Room Air Coding Level of Care Code 56570 IN/OBS CONSULT LVL 2,35M Diagnoses Wide-complex tachycardia R00.0 Primary hypertension I10 Hypertension type: primary hypertension Aortic valve insufficiency, etiology of cardiac valve disease unspecified I35.1 Cardiac valve disease etiology: etiology unspecified Coronary artery disease involving [place] coronary artery of [place] heart without angina pectoris I25.10 Associated angina: without angina Coronary Disease-Associated Artery/Lesion type: [place] artery [place] vs. transplanted heart: [place] heart Time Spent (min) 38 (2) Hypertension Hypertension type: primary hypertension Qualified Code(s): I10 - Essential (primary) hypertension (3) Aortic insufficiency Cardiac valve disease etiology: etiology unspecified Qualified Code(s): I35.1 - Nonrheumatic aortic (valve) insufficiency (4) CAD (coronary artery disease) Associated angina: without angina Coronary Disease-Associated Artery/Lesion type: [place] artery [place] vs. transplanted heart: [place] heart Qualified Code(s): I25.10 - Atherosclerotic heart disease of [place] coronary artery without angina pectoris
[2023-08-26 06:28] LABS: Basophils # (auto) 0.04 K/uL (0.00-0.20); Basophils % (auto) 0.4 %; Eosinophils # (auto) 0.04 K/uL (0.00-0.50); Eosinophils % (auto) 0.4 %; Hematocrit (blood only) 41.9 % (42.0-52.0); Hemoglobin 14.1 g/dl (14.0-18.0); Immature Granulocytes # (auto) 0.05 K/uL (0.01-0.20); Immature Granulocytes % (auto) 0.5 %; Lymphocytes % (auto) 13.6 %; Mean Corpuscular Hemoglobin 31.3 pg (25.0-34.0); Mean Corpuscular Hgb Conc 33.7 g/dL (32.0-36.0); Mean Corpuscular Volume 92.9 fL (80.0-100.0); Mean Platelet Volume 10.6 fL (9.4-12.4); Monocytes # (auto) 0.73 K/uL (0.11-0.59); Monocytes % (auto) 6.6 %; Neutrophils # (auto) 8.66 K/uL (1.40-6.50); Neutrophils % (auto) 78.5 %; Platelet Count 159 K/uL (130-400); RDW Coefficient of Variation 12.8 % (11.5-14.5); RDW Standard Deviation 43.4 fL (36.4-46.3); Red Blood Count 4.51 M/uL (4.70-6.10); White Blood Count 11.02 K/ul (4.8-10.8)
[2023-08-26 06:39] LABS: Albumin Level 3.7 gm/dl (3.4-5.0); BUN Creatinine Ratio 16.9 (10-20); Calcium 8.6 mg/dl (8.6-10.3); Creatinine Clr Calc Pharmacy 102.2 ml/min; Est GFR (African American) 108.8 ml/min; Est GFR (Non-African American) 93.9 ml/min; Magnesium 2.1 mg/dl (1.7-2.4); Phosphorus 2.4 mg/dl (2.5-4.9); Potassium 3.4 mmol/L (3.5-5.1)
[2023-08-26] MEDS ORDERED: POTASSIUM PHOS 3 MMOL/1 ML INFUSION IV STA (06:45)
[2023-08-26 06:49] LABS: ANTI-Xa, UFH(UnfractionatedHep 0.51 IU/ml (0.3-0.7)
[2023-08-26 06:57] LABS: Troponin I High Sensitivity 23.1 pg/ml (0-20)
[2023-08-26] MEDS: POTASSIUM PHOSPHATE 30 MMOL in SODIUM CHLORIDE 0.9% 500 ML IV ONE (08:00)
--- NOTE | 2023-08-26 08:13 | Cardiology Consultation ---
Date of Consultation August 26, 2023 Assessment & Plan (1) ICD (implantable cardioverter-defibrillator), single, in situ: (2) Ventricular tachycardia: (3) CAD (coronary artery disease): (4) Mitral regurgitation: Plan 1. Single-chamber ICD: I interrogated his ICD, the device is programmed to detect ventricular tachycardia at 146 bpm. His presenting electrocardiogram suggests a heart rate of just over 120. His 48-hour heart rate trend shows a sudden onset of a rapid heart rate which has been consistent since that occurred, the heart rate varies somewhat with a peak of about 140 bpm. I decreased his detection rate to below his ventricular tachycardia rate, the device detected the rhythm appropriately and automatically terminate the arrhythmia with antitachycardia pacing. This is appropriate device function, he has very little heart rate response (probably due to medications) therefore I reprogrammed his detection rate to 120 bpm and it is unlikely he will have inappropriate detection. This should keep the situation from recurring in the future. 2. Ventricular tachycardia: He presented with ventricular tachycardia below the rate cut off of the device. Once reprogrammed the device appropriately terminated the tachycardia. He does not have a lot of tachycardia therefore I think it is acceptable to send him home on the same medications he was taking before, with reprogramming of the device to a lower detection rate we should not have the same issue occur. We may need a long-term approach, that is somewhat problematic as he has had several ablations without success. It may require a different approach, which I am not sure can be done at [facility]. I am not going to arrange that now, we will discuss that in the office and see whether he has more frequent episodes of VT now. 3. Coronary artery disease: Based on his prior catheterization reports he does have coronary artery disease. Although his lipid profile is not bad, it is not ideal and guidelines would indicate that he should be on a statin. His troponin is minimally elevated today consistent with demand ischemia and not consistent with an ischemic event. 4. Mitral regurgitation: He does have mitral regurgitation to a moderate degree, this was not felt to indicate further evaluation or treatment. History of Present Illness Reason for Consultation: VT Attending Physician: Joel Meyer, DO History of Present Illness This is a 68-year-old gentleman who is a history of hypertension, von Willebran d's disease, mitral valve prolapse for which he had a valve repair in 2003 and was left with only minor mitral insufficiency. He had a mild nonischemic cardiomyopathy with ejection fraction of 40 to 45% range but had a cardiac arrest in 2017 following which he had a [employer] ICD implanted in [place]. Catheterization then showed no obstructive coronary artery disease although he has been told he had up to a 30% narrowing but was also told that that was "nothing" and he has not been on a statin although he does take aspirin. I do not have that report to review. 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 He had electrophysiology study and ablation in [place] in August of 2018, evidently successfully and has not had difficulty since with ventricular tachycardia. He did bring in his [place] records and he did have a cardiac catheterization there on June 26, 2018 where he was described to have up to 20% sequential LAD stenoses so he has had documented coronary artery disease. He has continued to have difficulty with atrial tachycardia for which he is on sotalol, although that historically has controlled his symptoms quite well. He did have a slight decrease in his exercise ability in 2020 and he did not feel as comfortable doing things as he did in the past although he was not really limited. I did obtain an echocardiogram on December 01, 2020 which showed a low normal left ventricular ejection fraction at 50 to 55%, mild left ventricular hypertrophy and no significant mitral regurgitation. In [place] on June 24, 2018 his ejection fraction was reported as 60%. I did have a lipid profile done on December 15, 2020 this showed his total cholesterol to be 168, LDL 104 and HDL 47. These are slightly high but not bad but he does have known coronary artery disease. His liver function tests were unremarkable. He then developed recurrent ventricular tachycardia, having episodes on July 06July 09 and August 12, 2021. The device treated these appropriately with antitachycardia pacing. We discussed options but did not arrange anything, kothari milady he had further episodes of ventricular tachycardia on September 02, 2021 and was admitted to [facility] for an increase in his sotalol. Ultimately however he had VT ablation attempted at [facility] on September 21, 2021. It appears however that the origin of the VT was likely epicardial and could not be identified with the endocardial approach. He was therefore been maintained on sotalol 120 mg twice daily. [place] [facility] [place] cardiac MRI was arranged to further evaluate the scar around the mitral annulus that may be contributing to his ventricular tachycardia. The study was performed on 02/07/22 and was technically limited. There was no evidence of fibrosis in the visualized myocardium, including the territory around the lateral and inferior mitral annulus. He was observed to have episodes of ventricular tachycardia on April 03, 2022 and April 04, 2022 (these were symptomatic and were terminated by antitachycardia pacing). He was seen in the office April 10, 2022 and consideration was given to increasing his sotalol but due to resting bradycardia this was not done. He then received an ICD shock and came to the emergency room on April 11, 2022. It was the same arrhythmia that had failed to convert with antitachycardia pacing. I did adjust his antitachycardia pacing algorithm to add more attempts (adding a ramp to his protocol) and his sotalol was increased to 160 mg twice a day and he was discharged on April 13, 2022. With worsening VT and ICD shocks he was referred back to [facility] for ablation which was performed on May 10, 2022. His sotalol was decreased to 120 mg twice a day after ablation. He had recurrence of his symptomatic PVCs however as well as episodes of nonsustained ventricular tachycardia. This morphology appeared to be different and therefore ablation was repeated on September 13, 2022. He was maintained on sotalol 240 mg twice a day and mexiletine 300 mg 3 times daily. His blood pressure was elevated at an office visit, I therefore added amlodipine 5 mg daily to his regimen on July 18, 2023. He is also maintained on lisinopril 40 mg daily and metoprolol succinate 100 mg twice a day. For antiarrhythmic therapy he is maintained on sotalol 120 mg twice a day. An echocardiogram done July 25, 2023 shows normal left ventricular size with mild concentric left ventricular hypertrophy and an ejection fraction of 50 to 55%. He has a mildly dilated right ventricle with normal function, he did have mild pulmonary hypertension. He has moderate mitral regurgitation with no stenosis. His mitral regurgitation appeared to progress compared to November 2020. He also has mild to moderate aortic regurgitation and a mildly dilated aortic root at 4.1 cm. He presents now with symptoms of palpitations and tachycardia. He felt that the symptoms were little less pronounced than before but the heart rate was obvious. He did not have symptoms of lightheadedness, dizziness or presyncope. This may be because the heart rate is low. The tachycardia is below the rate detection of the ICD, which is set to 146 bpm. The tachycardia has an inferior axis and a right bundle pattern, I cannot find a prior twelve-lead electrocardiogram in our records for comparison. He was stable, he was therefore started on intravenous amiodarone but that failed to convert the arrhythmia. He feels well resting in bed. He does not have any chest discomfort and does not have any orthopnea or PND. Allergies Allergy/AdvReac Type Severity Reaction Status Date / Time warfarin Allergy Intermediate RASH, Verified 08/25/23 23:03 DECREASE BODY TEMP. Home Medications Medication Instructions Recorded Confirmed Type amoxicillin 500 mg capsule 2,000 mg PO DIRECTED 11/15/20 08/25/23 History aspirin 81 mg tablet,delayed 81 mg PO PM 11/15/20 08/25/23 History release cranberry extract 650 mg capsule 650 mg PO QAM 07/11/21 08/25/23 History (Theracran) multivitamin 1 tab PO DAILY 04/11/22 08/25/23 History acetaminophen 500 mg capsule 1,000 mg PO Q6H PRN Pain 05/25/22 08/25/23 History lisinopril 40 mg tablet 40 mg PO HS #90 tabs 09/05/22 08/25/23 Rx mexiletine 150 mg capsule 150 mg PO TID 01/25/23 08/25/23 History metoprolol succinate 100 mg 100 mg PO BID #180 tabs 02/15/23 08/25/23 Rx tablet,extended release 24 hr hydrochlorothiazide 25 mg tablet 25 mg PO DAILY #90 tabs 03/15/23 08/25/23 Rx amlodipine 5 mg tablet 5 mg PO DAILY #90 tabs 07/18/23 08/25/23 Rx sotalol 120 mg tablet 120 mg PO Q12 08/25/23 08/25/23 History Device Information Device Type: ICD Device Location: Left Pre-Pectoral Device/ICD [employer], Model, Serial #: MyTrainer, Model, Serial# Implantation Date: December 20, 2016 Device MRI Compatable: Yes Magnet Response: Inhibits therapy Underlying Rhythm: Sinus Bradycardia Device Dependent: No Mode: VVI Lower Rate: 40 Patient History Medical History Hematuria Elevated prostate specific antigen (PSA) Dysuria Von Willebrand disease Ventricular tachycardia Symptomatic PVCs Mitral valve prolapse Mild right ventricular systolic dysfunction Mild pulmonary hypertension Mild left ventricular systolic dysfunction LVH (left ventricular hypertrophy) Hypertension Endocarditis Dilated aortic root Nephrolithiasis BPH (benign prostatic hyperplasia) Complex renal cyst Surgical History S/P mitral valve repair S/P ICD (internal cardiac defibrillator) procedure S/P cardiac catheterization Family History Mother Glaucoma Father AF (atrial fibrillation) Heart disease Sister Fibromyalgia Brother Heart disease Social History Smoking Status: Never smoker Do You Dip or Chew Tobacco: No; Hx Alcohol Use: No Hx Substance Use: No Preferred Language: Gabonese Communication Ability: Effective Veterinary Anatomist Required: No Beliefs That Will Affect Care: None marital status: Single Current Living Situation: Alone 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 HEENT: Unremarkable Neck: No jugular venous distention, carotid pulses are normal and equal bilaterally without bruits. Pulmonary: Clear to auscultation bilaterally. Cardiac: Regular rapid rhythm with a grade 2/6 holosystolic murmur at the apex, I also hear a decrescendo diastolic murmur along the left sternal border. There is no gallop or rub. Abdomen: Soft, nontender with normal bowel sounds. Extremities: No edema. Distal pulses intact. Neurologic: No focal findings. Skin: The device site is well-healed without erythema, swelling or tenderness. No rash, ecchymoses or petechiae. Results & Data Vital Signs (Past 12 Hours) Vital Signs Temp Pulse Pulse Resp BP BP BP 08/26/23 08:00 106/78 08/26/23 08:00 132 H 26 H 08/26/23 08:00 132 H 08/26/23 07:00 100/75 08/26/23 07:00 129 H 19 08/26/23 06:00 128 H 17 100/80 08/26/23 05:00 130 H 23 97/75 L 08/26/23 04:00 36.7 C 128 H 21 102/75 08/26/23 03:00 132 H 22 101/73 08/26/23 02:00 123 H 21 108/84 08/26/23 01:00 131 H 21 106/88 08/26/23 00:02 08/26/23 00:00 121 H 22 120/89 08/25/23 23:35 36.6 C 136 H 20 114/88 08/25/23 23:27 36.6 C 134 H 19 114/88 08/25/23 22:46 126 H 16 126/98 08/25/23 22:30 133 H 18 133/88 08/25/23 22:17 129 H 08/25/23 22:15 128 H 18 111/89 08/25/23 22:00 123 H 18 110/92 08/25/23 21:45 126 H 18 125/95 08/25/23 21:32 122 H 18 114/86 08/25/23 21:16 126 H 18 117/96 08/25/23 21:00 123 H 18 100/83 08/25/23 20:45 134 H 20 112/82 08/25/23 20:30 137 H 16 106/81 08/25/23 20:16 138 H 18 132/98 Pulse Ox Pulse Ox O2 Del Method O2 Del Method 08/26/23 08:00 08/26/23 08:00 94 08/26/23 08:00 08/26/23 07:00 08/26/23 07:00 93 08/26/23 06:00 94 Room Air 08/26/23 05:00 93 Room Air 08/26/23 04:00 94 Room Air 08/26/23 03:00 94 Room Air 08/26/23 02:00 95 Room Air 08/26/23 01:00 96 Room Air 08/26/23 00:02 94 Room Air 08/26/23 00:00 94 Room Air 08/25/23 23:35 95 Room Air 08/25/23 23:27 94 Room Air 08/25/23 22:46 93 Room Air 08/25/23 22:30 94 Room Air 08/25/23 22:17 08/25/23 22:15 95 Room Air 08/25/23 22:00 95 Room Air 08/25/23 21:45 93 Room Air 08/25/23 21:32 91 Room Air 08/25/23 21:16 95 Room Air 08/25/23 21:00 93 Room Air 08/25/23 20:45 93 Room Air 08/25/23 20:30 94 Room Air 08/25/23 20:16 95 Room Air Laboratory Results Cardiac Enzymes 08/25/23 08/26/23 Range/Units 18:12 06:11 AST 37 (13-39) U/L Troponin I High Sens 10.2 23.1 H D (0-20) pg/ml Coagulation 08/25/23 Range/Units 18:12 PT 10.7 (9.0-12.0) Seconds APTT 30 (21-31) Seconds CBC 08/25/23 08/26/23 Range/Units 18:12 06:11 WBC 9.00 11.02 H (4.8-10.8) K/ul RBC 5.07 4.51 L (4.70-6.10) M/uL Hgb 15.6 14.1 (14.0-18.0) g/dl Hct 47.2 41.9 L (42.0-52.0) % Plt Count 206 159 (130-400) K/uL Neut # (Auto) 6.66 H 8.66 H (1.40-6.50) K/uL Lymph # (Auto) 1.44 1.50 (1.20-3.40) K/uL [place] # (Auto) 0.74 H 0.73 H (0.11-0.59) K/uL Eos # (Auto) 0.10 0.04 (0.00-0.50) K/uL Baso # (Auto) 0.05 0.04 (0.00-0.20) K/uL Comprehensive Metabolic Panel 08/25/23 08/26/23 Range/Units 18:12 06:11 Sodium 135 L 137 (136-145) mmol/L Potassium 3.6 3.4 L (3.5-5.1) mmol/L Chloride 99 106 (98-107) mmol/L Carbon Dioxide 30 26 (21-32) mmol/L BUN 16 13 (6-23) mg/dl Creatinine 0.97 0.77 (0.6-1.4) mg/dl Glucose 137 H 128 H (70-99(Fasting)) mg/dl Calcium 9.8 8.6 (8.6-10.3) mg/dl AST 37 (13-39) U/L ALT 28 (7-52) U/L Alkaline Phosphatase 82 (34-104) U/L Total Protein 7.3 (6.0-8.3) gm/dl Albumin 4.5 3.7 (3.4-5.0) gm/dl Intake and Output 08/25/23 08/26/23 08/26/23 22:59 06:59 14:59 Intake Total 900 / 1200 300 / 1200 217.983 / 217.983 Output Total 625 / 625 Balance 900 / 575 -325 / 575 217.983 / 217.983 Intake: IV 900 / 1200 300 / 1200 217.983 / 217.983 Amiodarone / D5w 150 mg In 100 200 / 200 ml @ 600 mls/hr IV NOW STA Rx#: [id number] Amiodarone / D5w 360 mg In 200 200 / 200 ml @ 1 MG/MIN 33.333 mls/hr IV ONE ONE Rx#:[id number] Heparin Sodium/Dextrose 25,000 217.983 / 217.983 units In 500 ml @ 1,450 UNITS/ HR 29 mls/hr IV .[id number] [facility] Rx #:[id number] Magnesium Sulfate / D5w 1 gm In 100 / 200 100 / 200 100 ml @ 50 mls/hr IV ONE ONE Rx#:[id number] Potassium Chloride / Wtr 10 meq 100 / 100 In 100 ml @ 100 mls/hr IV ONE ONE Rx#:[id number] Sodium Chloride 0.9% 500 ml @ 500 / 500 999 mls/hr IV .Q31M STA Rx#: [id number] Oral 0 / 0 Output: Urine 625 / 625 # Bowel Movements 0 / 0 Other: Weight 82.6 kg 82.9 kg Weight Measurement Method Chair Scale Built in [facility] Diagnostic Findings Telemetry: Ventricular tachycardia at a rate of rate around 140 bpm currently. This very somewhat in heart rate but has been present since presentation. PG Care Time/CCT Total # of Minutes Spent Total Time Spent with Patient: Total time spent is greater than 50% in coordination of care (as documented) at patient's floor/unit and/or counseling patient: Coding Level of Care Code 84900 INT INP/OBS CARE 3/75MIN Diagnoses ICD (implantable cardioverter-defibrillator), single, in situ Z95.810 Ventricular tachycardia I47.2 Coronary artery disease involving [place] coronary artery of [place] heart without angina pectoris I25.10 Associated angina: without angina Coronary Disease-Associated Artery/Lesion type: [place] artery [place] vs. transplanted heart: [place] heart Mitral valve insufficiency, unspecified etiology I34.0 Cardiac valve disease etiology: etiology unspecified CPT Codes Implantable Defib Single Lead Programming - 15256 ([id number]) (3) CAD (coronary artery disease) Associated angina: without angina Coronary Disease-Associated Artery/Lesion type: [place] artery [place] vs. transplanted heart: [place] heart Qualified Code(s): I25.10 - Atherosclerotic heart disease of [place] coronary artery without angina pectoris (4) Mitral regurgitation Cardiac valve disease etiology: etiology unspecified Qualified Code(s): I34.0 - Nonrheumatic mitral (valve) insufficiency
[2023-08-26 08:51] LABS: Appearance Urine Clear (Clear); Bilirubin Urine Negative (Negative); Blood Urine Negative (Negative); Color Urine Yellow; Glucose Urine UA Negative (Negative); Ketones Urine 1+ (Negative); Leukocyte Esterase Urine Negative (Negative); Nitrite Urine Negative (Negative); Protein Urine Negative (Negative); Specific Gravity Urine 1.018 (1.000-1.030); Urobilinogen Urine Negative (Negative); pH Urine 6.5 (4.5-7.5)
[2023-08-26] MEDS: PANTOprazole 40 MG in SYRINGE 0 ML IV SCH (09:47)
[2023-08-26] MEDS: MEXILETINE HCL 150 MG CAPSULE PO SCH (09:48)
[2023-08-26] MEDS: ACETAMINOPHEN 325 MG TAB PO PRN (14:13)
--- NOTE | 2023-08-26 15:24 | Hospitalist Progress Note ---
Date of Service August 26, 2023 Assessment & Plan (1) Ventricular tachycardia: Plan: Patient presents to the hospital for concern of tachycardia found to be a sustained ventricular tachycardia at a rate below his ICD correction setting. Cardiology was consulted and adjustment of ICD correction rate was changed to 120 and patient was sequentially converted to paced bradycardia at a rate of 40 bpm. Patient asymptomatic at rest but does feel chest pressure with ambulation with borderline low blood pressure. Amiodarone drip has been discontinued. -Patient currently paced bradycardia with otherwise normal vitals -Patient with persistent bradycardia with ambulation likely due to amiodarone drip recently being discontinued -Transfer from ICU to progressive care unit -Restart metoprolol and sotalol with hold parameters in a.m. -Continue mexiletine 3 times daily -Continue holding lisinopril and amlodipine given borderline low blood pressures -Discontinue amiodarone drip -Heparin discontinued -Potassium goal of greater than 4 and magnesium goal greater than 2 -Once patient feels asymptomatic with ambulation, he would be able to go home, expect discharge tomorrow on 08/27/2023 (2) Heart palpitations: Plan: As above (3) Hypertension: Plan: - Hold amlodipine, HCTZ and lisinopril in the setting of borderline blood pr essures given bradycardia (4) Aortic insufficiency: Plan: - Noted (5) CAD (coronary artery disease): Plan: - Patient with previous catheterization demonstrating minimal coronary artery disease indicating need for statin therapy -Consider starting statin outpatient (6) ICD (implantable cardioverter-defibrillator), single, in situ: Plan: As above (7) BPH (benign prostatic hyperplasia): Plan: - Noted, without pharmacotherapy Plan Disposition: Downgrade from ICU to PCU now that patient is no longer in sustained V. tach DVT prophylaxis: Previously on heparin, will withhold DVT prophylaxis pharmacotherapy for now Diet: Heart healthy CODE STATUS: Full code Admission and Anticipated Discharge Date Admission Date: August 25, 2023 Supervising Physician Co-Signing Physician Notes ATTESTATION I also saw the patient and confirmed castro portions of the history and exam. I discussed the case with the franchise business consultant. I agree with the impression and plan in the resident documentation, and as summarized below. EXAM 103/56, 40, 23, 36.7, 90% room air No complaints at rest Heart rate bradycardic, regular Lungs clear with normal respirations EXTR without edema DATA Labs Troponin 31.4 at 1101 Imaging Chest x-ray without consolidation or signs of failure IMPRESSION & PLAN V. tach, resolved with reprogramming of ICD Discontinue amiodarone Discontinue heparin He is bradycardic at rest; will have him ambulate him this morning and see how he feels. If asymptomatic, will be able to send him home. Otherwise, we will continue to monitor him overnight. Additional per resident documentation Subjective Patient seen at bedside this morning. No acute events reported overnight. Patient was in sustained V. tach overnight with stable vitals otherwise. Denies any shortness of breath or chest pain. At the time of my arrival, cardiology had not stopped by but during second visit, patient's pacemaker/ICD had been adjusted to different settings and the patient was in a paced rhythm at 40 bpm. At the second visit, patient still without symptoms. Later in the day when asked to ambulate around the ICU, patient did have chest pressure and did wish to stop. His heart rate did remain in the 40s. Otherwise no other complaints at this time. Review of Systems Review of Systems: All systems reviewed & are unremarkable except as noted in HPI & below Physical Exam Constitutional: well developed and well nourished Eyes: + anicteric sclerae Neck: trachea midline, no thyromegaly Respiratory: normal respiratory effort, lungs clear to auscultation Cardiovascular: Rate/Rhythm: + bradycardic Heart Sounds: no murmur Vessels: no JVD Gastrointestinal (Abdomen): normal bowel sounds, soft, nontender, no hepatosplenomegaly Skin: no rashes, warm and dry Psychiatric: A+Ox3, euthymic affect Results & Data Results & Data Vital Signs (Past 12 Hours) Vital Signs Temp Pulse Resp BP Pulse Ox O2 Del Method 08/26/23 08:00 106/78 08/26/23 08:00 132 H 26 H 94 08/26/23 08:00 132 H 08/26/23 07:00 100/75 08/26/23 07:00 129 H 19 93 08/26/23 06:00 128 H 17 100/80 94 Room Air 08/26/23 05:00 130 H 23 97/75 L 93 Room Air 08/26/23 04:00 36.7 C 128 H 21 102/75 94 Room Air (3) Hypertension Hypertension type: primary hypertension Qualified Code(s): I10 - Essential (primary) hypertension (4) Aortic insufficiency Cardiac valve disease etiology: etiology unspecified Qualified Code(s): I35.1 - Nonrheumatic aortic (valve) insufficiency (5) CAD (coronary artery disease) Associated angina: without angina Coronary Disease-Associated Artery/Lesion type: [place] artery [place] vs. transplanted heart: [place] heart Qualified Code(s): I25.10 - Atherosclerotic heart disease of [place] coronary artery without angina pectoris
[2023-08-26] MEDS: ICU Protocol for HYPERglycemia SCH (17:23)
--- NOTE | 2023-08-26 22:55 | Electrocardiogram Report ---
Test Reason : Blood Pressure : / mmHG Vent. Rate : 139 BPM Atrial Rate : 139 BPM P-R Int : 144 ms QRS Dur : 178 ms QT Int : 326 ms P-R-T Axes : 000 113 -54 degrees QTc Int : 496 ms Ventricular tachycardia Abnormal ECG When compared with ECG of 22-JAN-2023 20:04, Vent. rate has increased BY 91 BPM Confirmed by Meño Gomez ([id number]) on 08/26/2023 10:54:59 PM Referred By: REFERRED SELF Confirmed By:Meño Gomez
[2023-08-26] MEDS: ASPIRIN 81 MG ECTAB PO SCH (22:58)
[2023-08-27 04:43] LABS: Basophils # (auto) 0.03 K/uL (0.00-0.20); Basophils % (auto) 0.4 %; Eosinophils # (auto) 0.09 K/uL (0.00-0.50); Eosinophils % (auto) 1.3 %; Hematocrit (blood only) 37.7 % (42.0-52.0); Hemoglobin 12.4 g/dl (14.0-18.0); Immature Granulocytes # (auto) 0.02 K/uL (0.01-0.20); Immature Granulocytes % (auto) 0.3 %; Lymphocytes # (auto) 1.14 K/uL (1.20-3.40); Lymphocytes % (auto) 16.5 %; Mean Corpuscular Hemoglobin 30.6 pg (25.0-34.0); Mean Corpuscular Hgb Conc 32.9 g/dL (32.0-36.0); Mean Corpuscular Volume 93.1 fL (80.0-100.0); Mean Platelet Volume 9.9 fL (9.4-12.4); Monocytes # (auto) 0.53 K/uL (0.11-0.59); Monocytes % (auto) 7.6 %; Neutrophils # (auto) 5.12 K/uL (1.40-6.50); Neutrophils % (auto) 73.9 %; Platelet Count 140 K/uL (130-400); RDW Coefficient of Variation 12.8 % (11.5-14.5); RDW Standard Deviation 43.9 fL (36.4-46.3); Red Blood Count 4.05 M/uL (4.70-6.10); White Blood Count 6.93 K/ul (4.8-10.8)
[2023-08-27 04:59] LABS: Albumin Level 3.4 gm/dl (3.4-5.0); BUN Creatinine Ratio 17.4 (10-20); Calcium 8.3 mg/dl (8.6-10.3); Creatinine Clr Calc Pharmacy 91.5 ml/min; Est GFR (Non-African American) 89.7 ml/min; Phosphorus 2.1 mg/dl (2.5-4.9); Potassium 3.2 mmol/L (3.5-5.1)
--- NOTE | 2023-08-27 05:48 | Electrocardiogram Report ---
Test Reason : Blood Pressure : / mmHG Vent. Rate : 121 BPM Atrial Rate : 045 BPM P-R Int : 000 ms QRS Dur : 194 ms QT Int : 420 ms P-R-T Axes : 000 117 -56 degrees QTc Int : 596 ms Ventricular tachycardia Abnormal ECG When compared with ECG of 25-AUG-2023 18:09, (unconfirmed) No significant change Confirmed by Meño Gomez ([id number]) on 08/27/2023 5:47:56 AM Referred By: REFERRED SELF Confirmed By:Meño Gomez
--- NOTE | 2023-08-27 05:53 | Electrocardiogram Report ---
Test Reason : Blood Pressure : / mmHG Vent. Rate : 130 BPM Atrial Rate : 031 BPM P-R Int : 000 ms QRS Dur : 184 ms QT Int : 414 ms P-R-T Axes : 000 116 -58 degrees QTc Int : 609 ms Ventricular tachycardia Abnormal ECG When compared with ECG of 25-AUG-2023 23:49, (unconfirmed) No significant change Confirmed by Meño Gomez ([id number]) on 08/27/2023 5:52:40 AM Referred By: REFERRED SELF Confirmed By:Meño Gomez
[2023-08-27] MEDS ORDERED: POTASSIUM PHOS 3 MMOL/1 ML INFUSION IV STA (06:52)
--- NOTE | 2023-08-27 06:58 | Hospitalist Progress Note ---
Date of Service August 27, 2023 Assessment & Plan (1) Ventricular tachycardia: Plan: Patient presents to the hospital for concern of tachycardia found to be a sustained ventricular tachycardia at a rate below his ICD correction setting. Cardiology was consulted and adjustment of ICD correction rate was changed to 120 and patient was sequentially converted to paced bradycardia at a rate of 40 bpm. Patient asymptomatic at rest but does feel chest pressure with ambulation with borderline low blood pressure. Amiodarone drip has been discontinued. -Patient currently paced bradycardia with otherwise normal vitals -Patient with persistent bradycardia with ambulation likely due to amiodarone drip recently being discontinued -Transfer from ICU to progressive care unit -Restart metoprolol and sotalol with hold parameters in a.m. -Continue mexiletine 3 times daily -Continue holding lisinopril and amlodipine given borderline low blood pressures -Discontinue amiodarone drip -Heparin discontinued -Potassium goal of greater than 4 and magnesium goal greater than 2 -Once patient feels asymptomatic with ambulation, he would be able to go home, expect discharge tomorrow on 08/27/2023 (2) Heart palpitations: Plan: As above (3) Hypertension: Plan: - Hold amlodipine, HCTZ and lisinopril in the setting of borderline blood pr essures given bradycardia (4) Aortic insufficiency: Plan: - Noted (5) CAD (coronary artery disease): Plan: - Patient with previous catheterization demonstrating minimal coronary artery disease indicating need for statin therapy -Consider starting statin outpatient (6) ICD (implantable cardioverter-defibrillator), single, in situ: Plan: As above (7) BPH (benign prostatic hyperplasia): Plan: - Noted, without pharmacotherapy Plan Disposition: Downgrade from ICU to PCU now that patient is no longer in sustained V. tach DVT prophylaxis: Previously on heparin, will withhold DVT prophylaxis pharmacotherapy for now Diet: Heart healthy CODE STATUS: Full code Admission and Anticipated Discharge Date Admission Date: August 25, 2023 Subjective 08/25: Patient seen at bedside this morning. No acute events reported overnight. Patient was in sustained V. tach overnight with stable vitals otherwise. Denies any shortness of breath or chest pain. At the time of my arrival, cardiology had not stopped by but during second visit, patient's pacemaker/ICD had been adjusted to different settings and the patient was in a paced rhythm at 40 bpm. At the second visit, patient still without symptoms. Later in the day when asked to ambulate around the ICU, patient did have chest pressure and did wish to stop. His heart rate did remain in the 40s. Otherwise no other complaints at this time. 08/26: Results & Data Results & Data Vital Signs (Past 12 Hours) Vital Signs Temp Pulse Resp BP Pulse Ox Pulse Ox O2 Del Method 08/27/23 04:00 37.2 C 53 L 20 106/63 94 Room Air 08/27/23 00:00 36.7 C 55 L 20 117/63 95 Room Air 08/27/23 00:00 95 08/26/23 20:00 36.7 C 50 L 14 117/66 98 Room Air O2 Del Method 08/27/23 04:00 08/27/23 00:00 08/27/23 00:00 Room Air 08/26/23 20:00 (3) Hypertension Hypertension type: primary hypertension Qualified Code(s): I10 - Essential (primary) hypertension (4) Aortic insufficiency Cardiac valve disease etiology: etiology unspecified Qualified Code(s): I35.1 - Nonrheumatic aortic (valve) insufficiency (5) CAD (coronary artery disease) Coronary Disease-Associated Artery/Lesion type: [place] artery [place] vs. transplanted heart: [place] heart Associated angina: without angina Qualified Code(s): I25.10 - Atherosclerotic heart disease of [place] coronary artery without angina pectoris
[2023-08-27] MEDS: POTASSIUM PHOSPHATE 15 MMOL in SODIUM CHLORIDE 0.9% 250 ML IV ONE (07:53)
[2023-08-27] MEDS: METOPROLOL SUCC 50MG EXT REL TAB PO SCH (08:00)
[2023-08-27] MEDS: SOTALOL HCL 80 MG TAB PO SCH (08:00)
--- NOTE | 2023-08-27 10:14 | Discharge Summary ---
"Date of Service August 27, 2023 Admission HPI Per Admitting Provider The patient is a 68-year-old male with a past medical history including ventricular tachycardia, presence of ICD, aortic insufficiency, hypertension, history of defibrillator discharging, CAD, UTI status post treatment with Augmentin 1 week ago, BPH with LUTS and mitral regurgitation. About 1 hour prior to arrival, the patient noted an increased heart rate around 130-135. When he presented to the emergency department, he was found to be in sustained ventricular tachycardia over 130-140 range. He had not yet taken his evening medications, and was placed on Cardizem bolus/drip protocol by the ED. When given a second amiodarone 150 mg IV bolus, this brought his heart rate to a maintained 127-128 rate. The plan, as patient has discussed with cardiology, was that the patient was able to be brought come back to normal sinus rhythm he can go home. However, patient need to be admitted, and was admitted to the ICU on amiodarone continuous infusion per protocol. Prior to leaving the emergency department, patient did receive his mexiletine 150 mg dose and aspirin dose. His sotalol and metoprolol succinate evening doses were held. He also received NSS 500 mL, a single K rider, and magnesium sulfate 1 g IV. Admission Exam Per Admitting Provider The patient is awake, alert and oriented 3, well developed and well nourished, normocephalic and atraumatic, lying in bed and in no acute distress. HEENT--PERRL, EOMI, mucous membranes and oropharynx dry. Neck--supple. No JVD. No bruits. Thyroid normal, trachea midline, no adenopa thy. Heart-tachycardic and regular. No murmurs, rubs or gallops. Lungs--clear bilaterally, no respiratory distress, no accessory muscle use. Abdomen--normal bowel sounds and soft. Nontender. Nondistended, no hernias or masses, no organomegaly. Extremities--No edema. Dermatologic--normal skin turgor, normal color, no abnormal lymph nodes, no rash. Neurologic--cranial nerves II through XII grossly intact. Rheumatologic--normal range of motion. Psychiatric--normal affect. Principal Diagnosis VEntricular Tachycardia Discharge Exam Gen: NAD, alert, interactive HEENT: Supple, no LAD, no JVD Resp:Non-labored, no wheezing/rhonchi/rales, CTAB CV:bradycardic, regular rhythm, normal S1/S2, no M/R/G Abd: Soft, non-distended, no TTP, normoactive bowels, no masses Extr: 2+ dp bilaterally, no edema Skin: No rashes lesions or erythema Discharge Data Allergies Allergy/AdvReac Type Severity Reaction Status Date / Time warfarin Allergy Intermediate RASH, Verified 08/25/23 23:03 DECREASE BODY TEMP. Consultations 08/25/23 21:42 ED Decision to Admit Stat 08/25/23 23:30 Consult Creative Services Specialist Routine 08/26/23 13:49 Consult Cardiology Routine Hospital Course (1) Ventricular tachycardia: (2) Heart palpitations: (3) Hypertension: (4) Aortic insufficiency: (5) CAD (coronary artery disease): (6) ICD (implantable cardioverter-defibrillator), single, in situ: (7) BPH (benign prostatic hyperplasia): Plan Patient presented to the hospital for concern of tachycardia found to be a sustained ventricular tachycardia at a rate below his ICD correction setting. Cardiology was consulted and adjustment of ICD correction rate was changed to 120 and patient was sequentially converted to paced bradycardia at a rate of 40 bpm. Patient asymptomatic at rest but does feel chest pressure with ambulation with borderline low blood pressure. Amiodarone drip has been discontinued. Symptomatic bradycardia now resolved off Amiodarone. Ventricular Tachycardia | Palpitations | ICD - Patient currently paced bradycardia with otherwise normal vitals s/p adjustment of ICD parameters - Symptomatic bradycardia with ambulation resolved now following d/c of Amiodarone - Restarted metoprolol and sotalol with hold parameters for HR < 60, continue upon discharge - Continue mexiletine 3 times daily - BP now increased to 130s/80s, resume antihypertensives on discharge - Heparin discontinued - Potassium goal of greater than 4 and magnesium goal greater than 2 (K repleted this AM) - Patient now asymptomatic with ambulation, discharge to home w/ 1-2 week PCP follow up Hypertension: - Restart antihypertensives upon return to home, BP rising Aortic insufficiency: - Noted CAD (coronary artery disease): - Patient with previous catheterization demonstrating minimal coronary artery disease indicating need for statin therapy - Consider starting statin outpatient BPH (benign prostatic hyperplasia): - Noted, without pharmacotherapy Plan Disposition: Stable to discharge to home DVT prophylaxis: Previously on Heparin, no home anticoagulation Diet: Heart healthy CODE STATUS: Full code Total Time Total Time Spent Total Time Spent (In Minutes): <30 Discharge Plan Discharge Items Patient Disposition: Home - Self-Care Reason For Visit: VTACH Discharge Diagnosis: VTACH Activity: Per Instructions section Non-emergency contact: Primary Care Provider and Wireless Telegrapher Call non-emergency contact if: you have any medication questions and your symptoms worsen Follow-up/Referrals: PCP,NO [Primary Care Provider] - Diet: Regular Addtl Attending Provider Instructions: You presented to the hospital for concern of tachycardia. While you are here was found that you were in a condition called ventricular tachycardia for which you have had previous episodes before. It seems that the rate at which your ventricular tachycardia was presenting was below the threshold for your ICD to correct the rhythm, so this is why it was sustained and causing you symptoms such as palpitations. Our cardiology team was consulted who made adjustments towards the threshold for which the abnormal rhythm would be corrected and this resulted in your heart being paced and back to your baseline. You were kept overnight due to your heart rate not rising with ambulation/activity but on the day of discharge, your heart rate was able to increase and your symptoms had resolved. At this time, we are not making any changes to your regimen. Please follow-up with your primary care provider within 1 to 2 weeks of discharge. Is been a pleasure to be a part of your care and we wish you the best in both your health and your recovery Pending Studies at Discharge: No Stand-Alone Forms: My [facility] [place], Smoking Cessation Medications and DC Order Prescriptions: Continued lisinopril 40 mg tablet 40 mg PO HS Qty: 90 3RF mexiletine 150 mg capsule 150 mg PO TID metoprolol succinate 100 mg tablet extended release 24 hr 100 mg PO BID Qty: 180 3RF hydrochlorothiazide 25 mg tablet 25 mg PO DAILY Qty: 90 3RF amlodipine 5 mg tablet 5 mg PO DAILY Qty: 90 3RF acetaminophen 500 mg capsule 1,000 mg PO Q6H PRN (Reason: Pain) amoxicillin 500 mg capsule 2,000 mg PO DIRECTED Rx Instructions: 2,000 mg PO prior to dental appointments as directed aspirin 81 mg tablet,delayed release (DR/EC) 81 mg PO PM Theracran 650 mg Capsule 650 mg PO QAM multivitamin Tablet 1 tab PO DAILY sotalol 120 mg tablet 120 mg PO Q12 Discharge Orders: Discharge Order (Routine); Ordered 08/27/23 Ordered By: Jr Bojorquez Admission Data Admit Date/Time: 08/25/23 22:53 Attending Provider: Shay Barbosa Admit Provider: Praneeth Lau Primary Care Provider: PCP,NO Other Providers: Praneeth Lau; Ferdinand Lorenzana; Meño Gomez Other Interventions: Discharge Summary Assessment (RN) Last Done: 08/27/23 11:29 Supervising Physician Co-Signing Physician Notes I personally examined the patient and verified all castro points of history and exam, discussed case, and agree with decision making with Dr Bojorquez feeling good wants to go home vitals noted nad heent nc at mmm breathing unlabored 52 on monitor Vtach - resolved w ICD reprogramming. appreciate cardiology input, ok for home. otherwise as above // as per cardiology Resident Activity Tracking Resident Involvement: Resident Care Provided Care Provided: Adult Hospital Medicine"
--- NOTE | 2023-08-27 10:56 | Electrocardiogram Report ---
Test Reason : Blood Pressure : / mmHG Vent. Rate : 052 BPM Atrial Rate : 052 BPM P-R Int : 232 ms QRS Dur : 134 ms QT Int : 552 ms P-R-T Axes : -10 027 111 degrees QTc Int : 513 ms Sinus bradycardia with 1st degree A-V block Non-specific intra-ventricular conduction block T wave abnormality, consider lateral ischemia Abnormal ECG When compared with ECG of 26-AUG-2023 06:10, Sinus rhythm has replaced Ventricular tachycardia Vent. rate has decreased BY 78 BPM Confirmed by Mahin Byrd ([id number]) on 08/27/2023 10:55:54 AM Referred By: REFERRED SELF Confirmed By:Mahin Byrd
--- NOTE | 2023-08-27 13:17 | Billing Data ---
Date of Service August 27, 2023 Coding Level of Care Code 46525 IN/OBS DISCH 30 MIN/LESS
== END 2023-08-27 11:55 | disposition home or self-care (01) | DRG 309 ==
LOC: ED 17:52 → 1E 22:53 → SUATTDRO 22:53 → 1E 23:09